=== PATIENT | female | born 1940 | race Caucasian/White ===

== ENCOUNTER 2021-08-27 16:46 | Inpatient (IN) | payer OTHER, SELFPAY ==
[~2021-08-27] VITALS: Ht 167.6 cm; Wt 75.4 kg
[2021-08-27 16:46] VITALS: BP_SYST 105
[~2021-08-27 16:46] MED LIST: ACET-73 PO; ALLO300T2 PO; APIX2.5T PO; ASCO500T20 PO; BACI1CAP14 PO; CARV6.2554 PO; CRAN450T9 PO; FURO-150 PO; LIDO1ADH77 TP; Lidocaine Patch 5% TP; MIRA50TA PO; NEU300 PO; OLME20TA13 PO; Thiamine Hcl PO
[2021-08-27] MEDS ORDERED: NACL 0.9% 1,000 ML IV ONE (17:30)
[2021-08-27 19:00] LABS: ANION GAP 12 (5-15); CALCIUM 9.7 mg/dL (8.4-11.0); CHLORIDE 104 mmol/L (98-107); CREATININE 0.87 mg/dL (0.55-1.30); GLUCOSE 90 mg/dL (70-99); POTASSIUM 3.6 mmol/L (3.5-5.1); SODIUM SERUM 140 mmol/L (136-145); UREA NITROGEN, BLOOD 19 mg/dL (8-21)
[2021-08-27 19:06] LABS: BASOPHILS % (AUTO) 0.3 % (0.0-2.0); EOSINOPHILS # (AUTO) 0.2 K/uL (0.0-0.4); EOSINOPHILS % (AUTO) 3.4 % (0.0-4.0); HEMATOCRIT 31.1 % (36-48); HEMOGLOBIN 10.2 g/dL (12.0-16.0); LYMPHOCYTES # (AUTO) 1.7 K/uL (1.0-5.5); LYMPHOCYTES % (AUTO) 32.6 % (20.5-51.5); MEAN CORPUSCULAR HEMOGLOBIN 32 pg (27-31); MEAN CORPUSCULAR HGB CONC 33 % (32-36); MEAN CORPUSCULAR VOLUME 97 fL (79.0-98.0); MONOCYTES # (AUTO) 0.5 K/uL (0.0-1.0); MONOCYTES % (AUTO) 9.6 % (1.7-9.3); NEUTROPHILS # (AUTO) 2.7 K/uL (1.8-7.7); NEUTROPHILS % (AUTO) 54.1 % (40.0-70.0); PLATELET COUNT (AUTO) 112 K/uL (130-430); RED BLOOD CELL COUNT(AUTO) 3.22 MIL/uL (4.2-6.2); RED CELL DISTRIBUTION WIDTH 18.5 % (9.0-15.0); WHITE BLOOD COUNT (AUTO) 5.1 K/uL (4.8-10.8)
[2021-08-27 19:08] LABS: ALANINE AMINOTRANSFERASE 20 U/L (12-78); ALBUMIN 3.3 g/dL (3.4-4.8); ASPARTATE AMINOTRANSFERASE 23 U/L (10-37); TOTAL BILIRUBIN 0.5 mg/dL (0.0-1.0)
[2021-08-27 19:15] LABS: PROTHROMBIN TIME 10.2 SECS (9.5-12.5)
[2021-08-27] MEDS ORDERED: cefTRIAXone 1 GM in LIDOCAINE 1%, 20 ML MDV 2.1 ML IM ONE (20:30)
[2021-08-27 20:36] LABS: BILIRUBIN,URINE NEGATIVE (NEGATIVE); BLOOD, URINE 2+ (NEGATIVE); CLARITY/URINE CLEAR (CLEAR); COLOR,URINE YELLOW (YELLOW); GLUCOSE,URINE NEGATIVE (NEGATIVE); KETONES,URINE NEGATIVE (NEGATIVE); LEUKOCYTE ESTERASE ,URINE 1+ (NEGATIVE); NITRITE, URINE NEGATIVE (NEGATIVE); PROTEIN URINE NEGATIVE (NEGATIVE); UROBILINOGEN,URINE 0.2 (0.2-1.0)
[2021-08-27 20:44] LABS: BACTERIA,URINE FEW /HPF (None Seen)
[2021-08-27 20:54] LABS: BARBITURATE, URINE NEGATIVE (NEG <=200); BENZODIAZEPINE, URINE NEGATIVE (NEG <=150); CANNABINOID, URINE NEGATIVE (NEG <=50); COCAINE, URINE NEGATIVE (NEG <=150); METHAMPHETAMINES SCREEN,URINE NEGATIVE (NEG <=500); OPIATE, URINE NEGATIVE (NEG <=100); PHENCYCLIDINE SCREEN,URINE NEGATIVE (NEG <=25); UR TRICYCLIC ANTIDEPRESSANTS NEGATIVE (NEG <=300); URINE AMPHETAMINE NEGATIVE (NEG <=500); URINE METHADONE NEGATIVE (NEG <=200); URINE OXYCODONE SCREEN NEGATIVE (NEG <=100); URINE PROPOXYPHENE SCREEN NEGATIVE (NEG <=300)
[2021-08-27] MEDS ORDERED: AZITHROMYCIN 500 MG in NS 250 ML IV ONE (21:30)
[2021-08-27] MEDS ORDERED: FUROSEMIDE 40 MG/4 ML VIAL IVP ONE (21:30)
[2021-08-27] MEDS ORDERED: POTASSIUM CHLORIDE 20 MEQ TAB.PRT.SR PO ONE (23:30)
[2021-08-27] MEDS ORDERED: cefTRIAXone 1 GM VIAL ONE (23:43)
[2021-08-27] MEDS ORDERED: AZITHROMYCIN 500 MG/VIAL (ZITHROMAX) IV ONE (23:43)
[2021-08-27] MEDS ORDERED: FUROSEMIDE 40 MG/4 ML VIAL ONE (23:44)
[2021-08-27] MEDS ORDERED: POTASSIUM CHLORIDE 20 MEQ TAB.PRT.SR ONE (23:44)
[2021-08-28] MEDS: AZITHROMYCIN 500 MG in NS 250 ML IV SCH ×2 (00:15→23:02)
[2021-08-28] MEDS: cefTRIAXone 1 GM in D5W 50 ML IV SCH ×2 (00:15→23:03)
[2021-08-28 02:14] VITALS: BP_SYST 154
[2021-08-28 04:00] VITALS: BP_SYST 145
[2021-08-28 07:06] LABS: BASOPHILS % (AUTO) 0.2 % (0.0-2.0); EOSINOPHILS # (AUTO) 0.3 K/uL (0.0-0.4); EOSINOPHILS % (AUTO) 5.8 % (0.0-4.0); HEMATOCRIT 33.3 % (36-48); HEMOGLOBIN 10.8 g/dL (12.0-16.0); LYMPHOCYTES # (AUTO) 1.1 K/uL (1.0-5.5); LYMPHOCYTES % (AUTO) 23.1 % (20.5-51.5); MEAN CORPUSCULAR HEMOGLOBIN 31 pg (27-31); MEAN CORPUSCULAR HGB CONC 33 % (32-36); MEAN CORPUSCULAR VOLUME 96 fL (79.0-98.0); MONOCYTES # (AUTO) 0.4 K/uL (0.0-1.0); MONOCYTES % (AUTO) 8.3 % (1.7-9.3); NEUTROPHILS # (AUTO) 3.1 K/uL (1.8-7.7); NEUTROPHILS % (AUTO) 62.6 % (40.0-70.0); PLATELET COUNT (AUTO) 114 K/uL (130-430); RED BLOOD CELL COUNT(AUTO) 3.46 MIL/uL (4.2-6.2); RED CELL DISTRIBUTION WIDTH 18.1 % (9.0-15.0)
[2021-08-28 07:20] LABS: ANION GAP 12 (5-15); CHLORIDE 106 mmol/L (98-107); CREATININE 0.86 mg/dL (0.55-1.30); GLUCOSE 80 mg/dL (70-99); POTASSIUM 3.6 mmol/L (3.5-5.1); SODIUM SERUM 144 mmol/L (136-145); UREA NITROGEN, BLOOD 18 mg/dL (8-21)
[2021-08-28 08:00] VITALS: BP_SYST 156
[2021-08-28] MEDS ORDERED: [UNRECOGNIZED DRUG - OTHER] PO SCH (09:00)
[2021-08-28] MEDS ORDERED: NON-FORMULARY MEDICATION (Mirabegron (Myrbetriq) 50 MG) PO SCH (09:00)
[2021-08-28] MEDS: ALLOPURINOL 300 MG TABLET (ZYLOPRIM) PO SCH (09:00)
[2021-08-28] MEDS ORDERED: NON-FORMULARY MEDICATION (Cranberry Fruit (Cranberry) 1 TAB) PO SCH (09:00)
[2021-08-28] MEDS ORDERED: THIAMINE HCL 100 MG PO SCH (09:00)
[2021-08-28] MEDS ORDERED: BACILLUS COAGULANS PO SCH (09:00)
[2021-08-28] MEDS ORDERED: INULIN PO SCH (09:00)
[2021-08-28] MEDS: THIAMINE HCL 100 MG TABLET PO SCH (10:25)
[2021-08-28] MEDS: LACTOBACILLUS RHAMNOSUS GG 1 CAP CAPSULE PO SCH (10:25)
[2021-08-28] MEDS: ASCORBIC ACID 500 MG TABLET PO SCH (10:25)
[2021-08-28] MEDS: POTASSIUM CHLORIDE 20 MEQ TAB.PRT.SR PO SCH (10:25)
[2021-08-28] MEDS: CARVEDILOL 6.25 MG TABLET (COREG) PO SCH ×2 (10:26→22:13)
[2021-08-28] MEDS: LOSARTAN POTASSIUM 25 MG TABLET PO SCH (10:26)
[2021-08-28] MEDS: FUROSEMIDE 20 MG/2 ML VIAL IVP SCH ×2 (10:28→18:05)
[2021-08-28] MEDS: APIXABAN 2.5 MG TABLET PO SCH ×2 (10:28→22:17)
[2021-08-28 11:27] VITALS: BP_SYST 164
[2021-08-28 20:00] VITALS: BP_SYST 141
[2021-08-28] MEDS ORDERED: NON-FORMULARY MEDICATION (Lidocaine 1 PATCH) TP SCH (21:00)
[2021-08-28] MEDS ORDERED: LIDOCAINE 5% TP SCH (21:00)
[2021-08-28] MEDS: LIDOCAINE PATCH 5% 1 EA TP SCH (22:17)
[2021-08-28] MEDS: ACETAMINOPHEN 500 MG TABLET PO PRN (23:41)
[2021-08-29 02:18] VITALS: BP_SYST 140
[2021-08-29 05:45] VITALS: BP_SYST 142
[2021-08-29 08:08] VITALS: BP_SYST 144
[2021-08-29] MEDS: ACETAMINOPHEN 500 MG TABLET PO PRN ×2 (10:37→17:32)
[2021-08-29] MEDS: LACTOBACILLUS RHAMNOSUS GG 1 CAP CAPSULE PO SCH (10:37)
[2021-08-29] MEDS: ASCORBIC ACID 500 MG TABLET PO SCH (10:38)
[2021-08-29] MEDS: LOSARTAN POTASSIUM 25 MG TABLET PO SCH (10:38)
[2021-08-29] MEDS: THIAMINE HCL 100 MG TABLET PO SCH (10:38)
[2021-08-29] MEDS: POTASSIUM CHLORIDE 20 MEQ TAB.PRT.SR PO SCH (10:39)
[2021-08-29] MEDS: CARVEDILOL 6.25 MG TABLET (COREG) PO SCH ×2 (10:39→21:00)
[2021-08-29] MEDS: APIXABAN 2.5 MG TABLET PO SCH ×2 (10:40→21:13)
[2021-08-29] MEDS: FUROSEMIDE 20 MG/2 ML VIAL IVP SCH ×2 (10:41→17:34)
[2021-08-29] MEDS: ALLOPURINOL 300 MG TABLET (ZYLOPRIM) PO SCH (10:42)
[2021-08-29 16:22] VITALS: BP_SYST 129
[2021-08-29 20:47] VITALS: BP_SYST 128
[2021-08-29] MEDS: LIDOCAINE PATCH 5% 1 EA TP SCH (21:00)
[2021-08-30] MEDS: cefTRIAXone 1 GM in D5W 50 ML IV SCH ×2 (00:53→22:23)
[2021-08-30] MEDS: AZITHROMYCIN 500 MG in NS 250 ML IV SCH (00:53)
[2021-08-30 01:09] VITALS: BP_SYST 114
[2021-08-30 04:54] VITALS: BP_SYST 112
[2021-08-30 08:00] VITALS: BP_SYST 143
[2021-08-30 08:10] LABS: ANION GAP 9 (5-15); CHLORIDE 106 mmol/L (98-107); CREATININE 1.19 mg/dL (0.55-1.30); GLUCOSE 81 mg/dL (70-99); POTASSIUM 3.8 mmol/L (3.5-5.1); SODIUM SERUM 142 mmol/L (136-145); UREA NITROGEN, BLOOD 29 mg/dL (8-21)
[2021-08-30 08:30] LABS: HEMOGLOBIN 10.6 g/dL (12.0-16.0); MEAN CORPUSCULAR HEMOGLOBIN 31 pg (27-31); MEAN CORPUSCULAR HGB CONC 32 % (32-36); MEAN CORPUSCULAR VOLUME 96 fL (79.0-98.0); RED BLOOD CELL COUNT(AUTO) 3.42 MIL/uL (4.2-6.2); WHITE BLOOD COUNT (AUTO) 5.7 K/uL (4.8-10.8)
[2021-08-30 08:31] LABS: BASOPHILS % (AUTO) 0.5 % (0.0-2.0); EOSINOPHILS # (AUTO) 0.5 K/uL (0.0-0.4); EOSINOPHILS % (AUTO) 8.1 % (0.0-4.0); LYMPHOCYTES # (AUTO) 2.3 K/uL (1.0-5.5); LYMPHOCYTES % (AUTO) 41.2 % (20.5-51.5); MONOCYTES # (AUTO) 0.5 K/uL (0.0-1.0); MONOCYTES % (AUTO) 9.5 % (1.7-9.3); NEUTROPHILS # (AUTO) 2.3 K/uL (1.8-7.7); NEUTROPHILS % (AUTO) 40.7 % (40.0-70.0); PLATELET COUNT (AUTO) 124 K/uL (130-430); RED CELL DISTRIBUTION WIDTH 18.5 % (9.0-15.0)
[2021-08-30] MEDS: ASCORBIC ACID 500 MG TABLET PO SCH (09:54)
[2021-08-30] MEDS: THIAMINE HCL 100 MG TABLET PO SCH (09:54)
[2021-08-30] MEDS: LACTOBACILLUS RHAMNOSUS GG 1 CAP CAPSULE PO SCH (09:54)
[2021-08-30] MEDS: POTASSIUM CHLORIDE 20 MEQ TAB.PRT.SR PO SCH (09:54)
[2021-08-30] MEDS: ALLOPURINOL 300 MG TABLET (ZYLOPRIM) PO SCH (09:54)
[2021-08-30] MEDS: LOSARTAN POTASSIUM 25 MG TABLET PO SCH (09:55)
[2021-08-30] MEDS: CARVEDILOL 3.125 MG TABLET (COREG) PO SCH ×2 (09:55→21:40)
[2021-08-30] MEDS: APIXABAN 2.5 MG TABLET PO SCH ×2 (09:59→21:41)
[2021-08-30] MEDS: ACETAMINOPHEN 500 MG TABLET PO PRN ×2 (11:45→21:49)
[2021-08-30 12:00] VITALS: BP_SYST 122
[2021-08-30 16:00] VITALS: BP_SYST 129
[2021-08-30 20:00] VITALS: BP_SYST 143
[2021-08-30] MEDS: LIDOCAINE PATCH 5% 1 EA TP SCH (21:37)
[2021-08-30] MEDS: MUPIROCIN 2% TOPICAL OINTMENT 22 GM NS SCH (21:49)
[2021-08-31] MEDS: AZITHROMYCIN 500 MG in NS 250 ML IV SCH (00:15)
[2021-08-31 01:36] VITALS: BP_SYST 144
[2021-08-31 07:31] LABS: ANION GAP 8 (5-15); CALCIUM 9.2 mg/dL (8.4-11.0); CHLORIDE 108 mmol/L (98-107); GLUCOSE 91 mg/dL (70-99); POTASSIUM 3.9 mmol/L (3.5-5.1); SODIUM SERUM 144 mmol/L (136-145); UREA NITROGEN, BLOOD 29 mg/dL (8-21)
[2021-08-31 07:38] LABS: BASOPHILS # (AUTO) 0.1 K/uL (0.0-0.2); BASOPHILS % (AUTO) 1.2 % (0.0-2.0); EOSINOPHILS # (AUTO) 0.4 K/uL (0.0-0.4); EOSINOPHILS % (AUTO) 7.8 % (0.0-4.0); HEMATOCRIT 30.3 % (36-48); HEMOGLOBIN 9.8 g/dL (12.0-16.0); LYMPHOCYTES # (AUTO) 2.4 K/uL (1.0-5.5); LYMPHOCYTES % (AUTO) 41.9 % (20.5-51.5); MEAN CORPUSCULAR HEMOGLOBIN 31 pg (27-31); MEAN CORPUSCULAR HGB CONC 32 % (32-36); MEAN CORPUSCULAR VOLUME 97 fL (79.0-98.0); MONOCYTES # (AUTO) 0.5 K/uL (0.0-1.0); MONOCYTES % (AUTO) 9.3 % (1.7-9.3); NEUTROPHILS # (AUTO) 2.3 K/uL (1.8-7.7); NEUTROPHILS % (AUTO) 39.8 % (40.0-70.0); PLATELET COUNT (AUTO) 130 K/uL (130-430); RED BLOOD CELL COUNT(AUTO) 3.14 MIL/uL (4.2-6.2); RED CELL DISTRIBUTION WIDTH 17.9 % (9.0-15.0); WHITE BLOOD COUNT (AUTO) 5.7 K/uL (4.8-10.8)
[2021-08-31 08:00] VITALS: BP_SYST 136
[2021-08-31] MEDS: THIAMINE HCL 100 MG TABLET PO SCH (09:03)
[2021-08-31] MEDS: ASCORBIC ACID 500 MG TABLET PO SCH (09:03)
[2021-08-31] MEDS: LOSARTAN POTASSIUM 25 MG TABLET PO SCH (09:03)
[2021-08-31] MEDS: ALLOPURINOL 300 MG TABLET (ZYLOPRIM) PO SCH (09:04)
[2021-08-31] MEDS: LACTOBACILLUS RHAMNOSUS GG 1 CAP CAPSULE PO SCH (09:04)
[2021-08-31] MEDS: POTASSIUM CHLORIDE 20 MEQ TAB.PRT.SR PO SCH (09:05)
[2021-08-31] MEDS: APIXABAN 2.5 MG TABLET PO SCH ×2 (09:05→22:51)
[2021-08-31] MEDS: CARVEDILOL 3.125 MG TABLET (COREG) PO SCH ×2 (09:16→22:53)
[2021-08-31] MEDS: MUPIROCIN 2% TOPICAL OINTMENT 22 GM NS SCH ×2 (09:17→22:49)
[2021-08-31 13:16] VITALS: BP_SYST 156
[2021-08-31 18:13] VITALS: BP_SYST 151
[2021-08-31 20:00] VITALS: BP_SYST 145
[2021-08-31] MEDS: LIDOCAINE PATCH 5% 1 EA TP SCH (22:54)
[2021-08-31] MEDS: cefTRIAXone 1 GM in D5W 50 ML IV SCH (22:55)
[2021-09-01] MEDS: AZITHROMYCIN 500 MG in NS 250 ML IV SCH (00:12)
[2021-09-01 00:17] VITALS: BP_SYST 150
[2021-09-01 08:38] VITALS: BP_SYST 157
[2021-09-01] MEDS: ASCORBIC ACID 500 MG TABLET PO SCH (09:12)
[2021-09-01] MEDS: CARVEDILOL 3.125 MG TABLET (COREG) PO SCH (09:12)
[2021-09-01] MEDS: ALLOPURINOL 300 MG TABLET (ZYLOPRIM) PO SCH (09:13)
[2021-09-01] MEDS: THIAMINE HCL 100 MG TABLET PO SCH (09:13)
[2021-09-01] MEDS: POTASSIUM CHLORIDE 20 MEQ TAB.PRT.SR PO SCH (09:14)
[2021-09-01] MEDS: LACTOBACILLUS RHAMNOSUS GG 1 CAP CAPSULE PO SCH (09:14)
[2021-09-01] MEDS: LOSARTAN POTASSIUM 25 MG TABLET PO SCH (09:14)
[2021-09-01] MEDS: APIXABAN 2.5 MG TABLET PO SCH (09:14)
[2021-09-01] MEDS: MUPIROCIN 2% TOPICAL OINTMENT 22 GM NS SCH (09:18)
[2021-09-01 12:00] VITALS: BP_SYST 127
[2021-09-01 16:00] VITALS: BP_SYST 173
[2021-09-01 16:57] VITALS: BP_SYST 154
[2021-09-01] MEDS ORDERED: cloNIDine HCL 0.1 MG TABLET ONE (17:58)
[2021-09-01] MEDS ORDERED: cloNIDine HCL 0.1 MG TABLET PO ONE (18:00)
== END 2021-09-01 17:30 | disposition home health service (06) | DRG 193 ==
LOC: SED 16:46 → STU 22:19 → SMU 08-30 17:18
PROVIDERS: ADMIT Internal Medicine; ATTEND Internal Medicine
DX: J18.9 Pneumonia, unspecified organism (principal); I50.43 Acute on chronic combined systolic (congestive) and diastolic (congestive) heart failure; N39.0 Urinary tract infection, site not specified; I13.0 Hypertensive heart and chronic kidney disease with heart failure and stage 1 through stage 4 chronic kidney disease, or unspecified chronic kidney disease; I48.20 Chronic atrial fibrillation, unspecified; E44.1 Mild protein-calorie malnutrition; I48.21 Permanent atrial fibrillation; Z20.822 Contact with and (suspected) exposure to COVID-19; D64.9 Anemia, unspecified; I34.0 Nonrheumatic mitral (valve) insufficiency; I73.9 Peripheral vascular disease, unspecified; W06.XXXA Fall from bed, initial encounter; N18.9 Chronic kidney disease, unspecified; I71.4 Abdominal aortic aneurysm, without rupture; R53.1 Weakness; Z96.651 Presence of right artificial knee joint; Z96.641 Presence of right artificial hip joint; R53.81 Other malaise; G62.9 Polyneuropathy, unspecified; Y93.89 Activity, other specified; Y99.8 Other external cause status; Z79.01 Long term (current) use of anticoagulants; Z85.72 Personal history of non-Hodgkin lymphomas; Z92.21 Personal history of antineoplastic chemotherapy; Y92.098 Other place in other non-institutional residence as the place of occurrence of the external cause; Z88.8 Allergy status to other drugs, medicaments and biological substances; Z79.899 Other long term (current) drug therapy; Z90.710 Acquired absence of both cervix and uterus; Z90.5 Acquired absence of kidney; Z68.26 Body mass index [BMI] 26.0-26.9, adult
CPT/HCPCS: 36415; 70450-TC; 70551; 71045; 72131; 76376; 80048; 80053; 80307; 81000; 83605; 83880; 84484; 85025; 85610-TC; 85730-TC; 87040; 87081; 87086; 93005; 93880; 96365; 96367; 96375; 97110-GP; 97112-GP; 97116-GP; 97530-GP; 99285; G0378; J0456; J0696; J1940; J7050; J7060

== ENCOUNTER 2022-07-31 10:50 | Inpatient (IN) | payer OTHER ==
[~2022-07-31] VITALS: Ht 170.2 cm; Wt 71.2 kg
[~2022-07-31 10:50] MED LIST changes: -OLME20TA13 PO; +OLME20TA74 PO
[2022-07-31 10:53] VITALS: BP_SYST 116
[2022-07-31] MEDS ORDERED: BACITRACIN 1 GM OINT TP ONE (11:24)
[2022-07-31 12:09] LABS: BILIRUBIN,URINE NEGATIVE (NEGATIVE); BLOOD, URINE 3+ (NEGATIVE); CLARITY/URINE CLOUDY (CLEAR); COLOR,URINE YELLOW (YELLOW); GLUCOSE,URINE NEGATIVE (NEGATIVE); KETONES,URINE NEGATIVE (NEGATIVE); PH,URINE 8.5 (5.0-8.0); PROTEIN URINE 1+ (NEGATIVE)
[2022-07-31 12:10] LABS: LEUKOCYTE ESTERASE ,URINE 2+ (NEGATIVE); NITRITE, URINE NEGATIVE (NEGATIVE); UROBILINOGEN,URINE 0.2 (0.2-1.0); WBC,URINE >100 /HPF (0-3)
[2022-07-31 12:11] LABS: BACTERIA,URINE MODERATE /HPF (None Seen); MUCUS,URINE 1+ /LPF (None Seen)
[2022-07-31] MEDS ORDERED: cefTRIAXone 1 GM VIAL IM ONE (12:30)
[2022-07-31] MEDS ORDERED: CEPH-548 PO (12:30)
[2022-07-31] MEDS ORDERED: IBUPROFEN 600 MG TABLET PO ONE (13:15)
[2022-07-31] MEDS ORDERED: ACETAMINOPHEN 500 MG TABLET PO ONE (13:30)
[2022-07-31] MEDS ORDERED: NS 500 ML IV ONE (16:15)
[2022-07-31 17:20] LABS: BASOPHILS % (AUTO) 0.2 % (0.0-2.0); EOSINOPHILS % (AUTO) 0.3 % (0.0-4.0); HEMATOCRIT 27.1 % (36-48); HEMOGLOBIN 9.1 g/dL (12.0-16.0); LYMPHOCYTES % (AUTO) 12.2 % (20.5-51.5); MEAN CORPUSCULAR HEMOGLOBIN 30 pg (27-31); MEAN CORPUSCULAR HGB CONC 34 % (32-36); MEAN CORPUSCULAR VOLUME 90 fL (79.0-98.0); MONOCYTES # (AUTO) 0.5 K/uL (0.0-1.0); MONOCYTES % (AUTO) 6.5 % (1.7-9.3); NEUTROPHILS # (AUTO) 6.8 K/uL (1.8-7.7); NEUTROPHILS % (AUTO) 80.8 % (40.0-70.0); PLATELET COUNT (AUTO) 86 K/uL (130-430); RED BLOOD CELL COUNT(AUTO) 3.02 MIL/uL (4.2-6.2); RED CELL DISTRIBUTION WIDTH 18.7 % (9.0-15.0); WHITE BLOOD COUNT (AUTO) 8.5 K/uL (4.8-10.8)
[2022-07-31 17:34] LABS: ANION GAP 9 (5-15); CALCIUM 8.7 mg/dL (8.4-11.0); CHLORIDE 90 mmol/L (98-107); CREATININE 2.03 mg/dL (0.55-1.30); GLUCOSE 98 mg/dL (70-99); UREA NITROGEN, BLOOD 51 mg/dL (8-21)
[2022-07-31 17:42] LABS: ALANINE AMINOTRANSFERASE 12 U/L (12-78); ALBUMIN 2.1 g/dL (3.4-4.8); ASPARTATE AMINOTRANSFERASE 20 U/L (10-37); TOTAL BILIRUBIN 1.1 mg/dL (0.0-1.0)
[2022-07-31] MEDS ORDERED: POTASSIUM CHLORIDE 20 MEQ TAB.PRT.SR PO ONE (18:00)
[2022-07-31 20:12] VITALS: BP_SYST 120
[2022-07-31] MEDS ORDERED: ACETAMINOPHEN 500 MG TABLET PO PRN (21:30)
[2022-07-31] MEDS ORDERED: ALBUTEROL SULFATE 0.083% 2.5 MG/3 ML VIAL.NEB INH PRN (21:30)
[2022-07-31] MEDS ORDERED: ACETAMINOPHEN 325 MG TABLET PO PRN (21:30)
[2022-07-31] MEDS ORDERED: LORazepam 2 MG/ML VIAL IVP PRN (21:30)
[2022-07-31] MEDS ORDERED: IPRATROPIUM BROM 0.5 MG/2.5 ML VIAL.NEB (ATROVENT) INH PRN (21:30)
[2022-07-31] MEDS ORDERED: ONDANSETRON HCL 4 MG/2 ML VIAL IVP PRN (21:30)
[2022-07-31 21:40] VITALS: BP_SYST 120
[2022-07-31] MEDS: D5NS 1,000 ML IV SCH (22:13)
[2022-08-01] VITALS: BP_SYST 128
[2022-08-01] MEDS: ACETAMINOPHEN 325 MG TABLET PO PRN ×2 (03:51→09:56)
[2022-08-01 06:12] LABS: BASOPHILS % (AUTO) 0.2 % (0.0-2.0); EOSINOPHILS % (AUTO) 0.3 % (0.0-4.0); HEMATOCRIT 25.4 % (36-48); HEMOGLOBIN 8.6 g/dL (12.0-16.0); LYMPHOCYTES # (AUTO) 0.8 K/uL (1.0-5.5); LYMPHOCYTES % (AUTO) 11.9 % (20.5-51.5); MEAN CORPUSCULAR HEMOGLOBIN 31 pg (27-31); MEAN CORPUSCULAR HGB CONC 34 % (32-36); MEAN CORPUSCULAR VOLUME 91 fL (79.0-98.0); MONOCYTES # (AUTO) 0.5 K/uL (0.0-1.0); MONOCYTES % (AUTO) 7.7 % (1.7-9.3); NEUTROPHILS # (AUTO) 5.1 K/uL (1.8-7.7); NEUTROPHILS % (AUTO) 79.9 % (40.0-70.0); PLATELET COUNT (AUTO) 85 K/uL (130-430); RED BLOOD CELL COUNT(AUTO) 2.79 MIL/uL (4.2-6.2); RED CELL DISTRIBUTION WIDTH 18.5 % (9.0-15.0); WHITE BLOOD COUNT (AUTO) 6.4 K/uL (4.8-10.8)
[2022-08-01 06:41] LABS: ALANINE AMINOTRANSFERASE 13 U/L (12-78); ALBUMIN 1.9 g/dL (3.4-4.8); ANION GAP 8 (5-15); ASPARTATE AMINOTRANSFERASE 23 U/L (10-37); CALCIUM 8.7 mg/dL (8.4-11.0); CHLORIDE 95 mmol/L (98-107); CREATININE 1.89 mg/dL (0.55-1.30); GLUCOSE 128 mg/dL (70-99); PHOSPHORUS 3.4 mg/dL (2.7-4.5); TOTAL BILIRUBIN 0.9 mg/dL (0.0-1.0); UREA NITROGEN, BLOOD 49 mg/dL (8-21)
[2022-08-01 07:07] LABS: C-REACTIVE PROTEIN QUANT 32.5 mg/dL (0-0.5)
[2022-08-01 07:15] LABS: ERYTHROCYTE SEDIMENTATION RATE 26 MM/HR (0-20)
[2022-08-01] MEDS ORDERED: NON-FORMULARY MEDICATION (Cranberry Fruit (Cranberry) 1 TAB) PO SCH (09:00)
[2022-08-01] MEDS: cefTRIAXone 1 GM IVPB PREMIX 50 ML IV SCH (09:56)
[2022-08-01] MEDS: GABAPENTIN 300 MG CAPSULE PO SCH ×3 (09:57→21:59)
[2022-08-01] MEDS: ALLOPURINOL 300 MG TABLET (ZYLOPRIM) PO SCH (09:57)
[2022-08-01] MEDS: APIXABAN 2.5 MG TABLET PO SCH ×2 (10:00→22:02)
[2022-08-01] MEDS: D5NS 1,000 ML IV SCH ×2 (10:03→18:37)
[2022-08-01 12:51] VITALS: BP_SYST 135
[2022-08-01 17:09] VITALS: BP_SYST 138
[2022-08-01 19:15] VITALS: BP_SYST 135
[2022-08-01] MEDS: FUROSEMIDE 20 MG TABLET PO SCH (22:01)
[2022-08-01] MEDS: CARVEDILOL 12.5 MG TABLET (COREG) PO SCH (22:03)
[2022-08-01] MEDS: LIDOCAINE PATCH 5% 1 EA TP SCH (22:03)
[2022-08-02 00:33] VITALS: BP_SYST 119
[2022-08-02] MEDS: D5NS 1,000 ML IV SCH ×3 (03:43→18:26)
[2022-08-02 06:11] LABS: BASOPHILS % (AUTO) 0.3 % (0.0-2.0); EOSINOPHILS % (AUTO) 0.3 % (0.0-4.0); HEMATOCRIT 24.2 % (36-48); LYMPHOCYTES # (AUTO) 1.3 K/uL (1.0-5.5); LYMPHOCYTES % (AUTO) 21.4 % (20.5-51.5); MEAN CORPUSCULAR HEMOGLOBIN 30 pg (27-31); MEAN CORPUSCULAR HGB CONC 33 % (32-36); MEAN CORPUSCULAR VOLUME 91 fL (79.0-98.0); MONOCYTES # (AUTO) 0.6 K/uL (0.0-1.0); MONOCYTES % (AUTO) 9.5 % (1.7-9.3); NEUTROPHILS # (AUTO) 4.2 K/uL (1.8-7.7); NEUTROPHILS % (AUTO) 68.5 % (40.0-70.0); PLATELET COUNT (AUTO) 89 K/uL (130-430); RED BLOOD CELL COUNT(AUTO) 2.65 MIL/uL (4.2-6.2); RED CELL DISTRIBUTION WIDTH 18.6 % (9.0-15.0); WHITE BLOOD COUNT (AUTO) 6.1 K/uL (4.8-10.8)
[2022-08-02 07:16] LABS: ANION GAP 6 (5-15); CALCIUM 8.6 mg/dL (8.4-11.0); CHLORIDE 100 mmol/L (98-107); CREATININE 1.79 mg/dL (0.55-1.30); GLUCOSE 132 mg/dL (70-99); PHOSPHORUS 3.6 mg/dL (2.7-4.5); UREA NITROGEN, BLOOD 42 mg/dL (8-21)
[2022-08-02 07:25] LABS: ERYTHROCYTE SEDIMENTATION RATE 39 MM/HR (0-20)
[2022-08-02 08:12] VITALS: BP_SYST 134
[2022-08-02] MEDS: ACETAMINOPHEN 325 MG TABLET PO PRN ×2 (10:31→14:37)
[2022-08-02] MEDS: ALLOPURINOL 300 MG TABLET (ZYLOPRIM) PO SCH (10:31)
[2022-08-02] MEDS: GABAPENTIN 300 MG CAPSULE PO SCH ×3 (10:31→21:57)
[2022-08-02] MEDS: APIXABAN 2.5 MG TABLET PO SCH ×3 (10:33→22:42)
[2022-08-02] MEDS: cefTRIAXone 1 GM IVPB PREMIX 50 ML IV SCH (10:34)
[2022-08-02 13:27] VITALS: BP_SYST 143
[2022-08-02] MEDS ORDERED: IBUPROFEN 600 MG TABLET PO PRN (14:30)
[2022-08-02 17:03] VITALS: BP_SYST 112
[2022-08-02 19:17] VITALS: BP_SYST 118
[2022-08-02] MEDS: CARVEDILOL 12.5 MG TABLET (COREG) PO SCH (21:57)
[2022-08-02] MEDS: FUROSEMIDE 20 MG TABLET PO SCH (22:02)
[2022-08-02] MEDS: LIDOCAINE PATCH 5% 1 EA TP SCH (22:02)
[2022-08-03] MEDS: ACETAMINOPHEN 325 MG TABLET PO PRN ×3 (01:27→13:49)
[2022-08-03 02:01] VITALS: BP_SYST 134
[2022-08-03 06:28] LABS: BASOPHILS % (AUTO) 0.4 % (0.0-2.0); EOSINOPHILS % (AUTO) 0.5 % (0.0-4.0); HEMATOCRIT 24.9 % (36-48); HEMOGLOBIN 8.2 g/dL (12.0-16.0); LYMPHOCYTES # (AUTO) 1.4 K/uL (1.0-5.5); LYMPHOCYTES % (AUTO) 28.7 % (20.5-51.5); MEAN CORPUSCULAR HEMOGLOBIN 30 pg (27-31); MEAN CORPUSCULAR HGB CONC 33 % (32-36); MEAN CORPUSCULAR VOLUME 91 fL (79.0-98.0); MONOCYTES # (AUTO) 0.5 K/uL (0.0-1.0); NEUTROPHILS # (AUTO) 2.9 K/uL (1.8-7.7); NEUTROPHILS % (AUTO) 59.4 % (40.0-70.0); PLATELET COUNT (AUTO) 97 K/uL (130-430); RED BLOOD CELL COUNT(AUTO) 2.73 MIL/uL (4.2-6.2); RED CELL DISTRIBUTION WIDTH 18.7 % (9.0-15.0); WHITE BLOOD COUNT (AUTO) 4.9 K/uL (4.8-10.8)
[2022-08-03 07:14] LABS: ERYTHROCYTE SEDIMENTATION RATE 51 MM/HR (0-20)
[2022-08-03 07:19] LABS: ALANINE AMINOTRANSFERASE 14 U/L (12-78); ALBUMIN 1.9 g/dL (3.4-4.8); ANION GAP 8 (5-15); ASPARTATE AMINOTRANSFERASE 17 U/L (10-37); C-REACTIVE PROTEIN QUANT 20.4 mg/dL (0-0.5); CALCIUM 9.1 mg/dL (8.4-11.0); CHLORIDE 104 mmol/L (98-107); CREATININE 1.68 mg/dL (0.55-1.30); GLUCOSE 129 mg/dL (70-99); PHOSPHORUS 4.2 mg/dL (2.7-4.5); TOTAL BILIRUBIN 0.6 mg/dL (0.0-1.0); UREA NITROGEN, BLOOD 40 mg/dL (8-21)
[2022-08-03 08:30] VITALS: BP_SYST 109
[2022-08-03] MEDS: APIXABAN 2.5 MG TABLET PO SCH (08:37)
[2022-08-03] MEDS: ALLOPURINOL 300 MG TABLET (ZYLOPRIM) PO SCH (08:37)
[2022-08-03] MEDS: GABAPENTIN 300 MG CAPSULE PO SCH ×3 (08:38→21:39)
[2022-08-03] MEDS: D5NS 1,000 ML IV SCH (08:38)
[2022-08-03] MEDS: cefTRIAXone 1 GM IVPB PREMIX 50 ML IV SCH (08:40)
[2022-08-03 11:56] VITALS: BP_SYST 127
[2022-08-03 17:14] VITALS: BP_SYST 136
[2022-08-03 20:00] VITALS: BP_SYST 134
[2022-08-03] MEDS: FUROSEMIDE 20 MG TABLET PO SCH (21:39)
[2022-08-03] MEDS: CARVEDILOL 12.5 MG TABLET (COREG) PO SCH (21:39)
[2022-08-03] MEDS: LIDOCAINE PATCH 5% 1 EA TP SCH (21:40)
[2022-08-04] VITALS: BP_SYST 128
[2022-08-04] MEDS: ACETAMINOPHEN 325 MG TABLET PO PRN ×3 (05:54→17:52)
[2022-08-04 08:00] VITALS: BP_SYST 136
[2022-08-04] MEDS: ALLOPURINOL 300 MG TABLET (ZYLOPRIM) PO SCH (09:13)
[2022-08-04] MEDS: cefTRIAXone 1 GM IVPB PREMIX 50 ML IV SCH (09:13)
[2022-08-04] MEDS: GABAPENTIN 300 MG CAPSULE PO SCH ×3 (09:13→22:01)
[2022-08-04 10:26] LABS: BASOPHILS % (AUTO) 0.5 % (0.0-2.0); EOSINOPHILS % (AUTO) 0.5 % (0.0-4.0); HEMATOCRIT 26.9 % (36-48); HEMOGLOBIN 8.5 g/dL (12.0-16.0); LYMPHOCYTES # (AUTO) 1.2 K/uL (1.0-5.5); LYMPHOCYTES % (AUTO) 23.6 % (20.5-51.5); MEAN CORPUSCULAR HEMOGLOBIN 30 pg (27-31); MEAN CORPUSCULAR HGB CONC 32 % (32-36); MEAN CORPUSCULAR VOLUME 95 fL (79.0-98.0); MONOCYTES # (AUTO) 0.4 K/uL (0.0-1.0); MONOCYTES % (AUTO) 7.6 % (1.7-9.3); NEUTROPHILS # (AUTO) 3.4 K/uL (1.8-7.7); NEUTROPHILS % (AUTO) 67.8 % (40.0-70.0); PLATELET COUNT (AUTO) 93 K/uL (130-430); RED BLOOD CELL COUNT(AUTO) 2.82 MIL/uL (4.2-6.2); RED CELL DISTRIBUTION WIDTH 19.5 % (9.0-15.0)
[2022-08-04 10:31] LABS: ANION GAP 7 (5-15); C-REACTIVE PROTEIN QUANT 13.7 mg/dL (0-0.5); CALCIUM 9.4 mg/dL (8.4-11.0); CHLORIDE 104 mmol/L (98-107); CREATININE 1.46 mg/dL (0.55-1.30); GLUCOSE 123 mg/dL (70-99); PHOSPHORUS 4.3 mg/dL (2.7-4.5); UREA NITROGEN, BLOOD 41 mg/dL (8-21)
[2022-08-04 11:43] LABS: ERYTHROCYTE SEDIMENTATION RATE 45 MM/HR (0-20)
[2022-08-04 11:55] VITALS: BP_SYST 122
[2022-08-04 18:36] VITALS: BP_SYST 112
[2022-08-04 20:00] VITALS: BP_SYST 106
[2022-08-04 20:56] VITALS: BP_SYST 106
[2022-08-04] MEDS: CARVEDILOL 12.5 MG TABLET (COREG) PO SCH (21:00)
[2022-08-04] MEDS: FUROSEMIDE 20 MG TABLET PO SCH (21:00)
[2022-08-04] MEDS: LIDOCAINE PATCH 5% 1 EA TP SCH (22:01)
[2022-08-05 01:34] VITALS: BP_SYST 133
[2022-08-05 08:15] LABS: BASOPHILS % (AUTO) 0.5 % (0.0-2.0); EOSINOPHILS # (AUTO) 0.1 K/uL (0.0-0.4); EOSINOPHILS % (AUTO) 1.2 % (0.0-4.0); HEMOGLOBIN 9.3 g/dL (12.0-16.0); LYMPHOCYTES # (AUTO) 1.6 K/uL (1.0-5.5); LYMPHOCYTES % (AUTO) 29.6 % (20.5-51.5); MEAN CORPUSCULAR HEMOGLOBIN 30 pg (27-31); MEAN CORPUSCULAR HGB CONC 31 % (32-36); MEAN CORPUSCULAR VOLUME 96 fL (79.0-98.0); MONOCYTES # (AUTO) 0.5 K/uL (0.0-1.0); MONOCYTES % (AUTO) 8.8 % (1.7-9.3); NEUTROPHILS # (AUTO) 3.2 K/uL (1.8-7.7); NEUTROPHILS % (AUTO) 59.9 % (40.0-70.0); PLATELET COUNT (AUTO) 107 K/uL (130-430); RED BLOOD CELL COUNT(AUTO) 3.13 MIL/uL (4.2-6.2); RED CELL DISTRIBUTION WIDTH 19.4 % (9.0-15.0); WHITE BLOOD COUNT (AUTO) 5.3 K/uL (4.8-10.8)
[2022-08-05 08:44] VITALS: BP_SYST 157
[2022-08-05] MEDS: GABAPENTIN 300 MG CAPSULE PO SCH ×3 (09:00→21:37)
[2022-08-05 09:24] LABS: ERYTHROCYTE SEDIMENTATION RATE 40 MM/HR (0-20)
[2022-08-05] MEDS ORDERED: DIATR MEGLU/DIATRIZ SOD 30 ML SOLUTION PO ONE (09:41)
[2022-08-05] MEDS: cefTRIAXone 1 GM IVPB PREMIX 50 ML IV SCH (11:06)
[2022-08-05 11:42] LABS: ANION GAP 9 (5-15); C-REACTIVE PROTEIN QUANT 12.6 mg/dL (0-0.5); CALCIUM 9.8 mg/dL (8.4-11.0); CHLORIDE 104 mmol/L (98-107); CREATININE 1.56 mg/dL (0.55-1.30); GLUCOSE 104 mg/dL (70-99); PHOSPHORUS 3.9 mg/dL (2.7-4.5); UREA NITROGEN, BLOOD 43 mg/dL (8-21)
[2022-08-05 11:51] VITALS: BP_SYST 138
[2022-08-05] MEDS: ALLOPURINOL 300 MG TABLET (ZYLOPRIM) PO SCH (14:46)
[2022-08-05 17:34] VITALS: BP_SYST 130
[2022-08-05 19:00] VITALS: BP_SYST 137
[2022-08-05 20:00] VITALS: BP_SYST 137
[2022-08-05] MEDS: CARVEDILOL 12.5 MG TABLET (COREG) PO SCH (21:36)
[2022-08-05] MEDS: FUROSEMIDE 20 MG TABLET PO SCH (21:37)
[2022-08-05] MEDS: LIDOCAINE PATCH 5% 1 EA TP SCH (21:37)
[2022-08-05] MEDS: ACETAMINOPHEN 325 MG TABLET PO PRN (21:52)
[2022-08-06 01:43] VITALS: BP_SYST 131
[2022-08-06 07:07] LABS: ALANINE AMINOTRANSFERASE 14 U/L (12-78); ALBUMIN 2.1 g/dL (3.4-4.8); ANION GAP 6 (5-15); ASPARTATE AMINOTRANSFERASE 13 U/L (10-37); C-REACTIVE PROTEIN QUANT 9.8 mg/dL (0-0.5); CALCIUM 9.5 mg/dL (8.4-11.0); CHLORIDE 103 mmol/L (98-107); GLUCOSE 94 mg/dL (70-99); PHOSPHORUS 3.5 mg/dL (2.7-4.5); TOTAL BILIRUBIN 0.6 mg/dL (0.0-1.0); UREA NITROGEN, BLOOD 42 mg/dL (8-21)
[2022-08-06 07:50] LABS: BASOPHILS % (AUTO) 0.2 % (0.0-2.0); HEMOGLOBIN 8.4 g/dL (12.0-16.0); LYMPHOCYTES # (AUTO) 1.7 K/uL (1.0-5.5); LYMPHOCYTES % (AUTO) 36.9 % (20.5-51.5); MEAN CORPUSCULAR HEMOGLOBIN 30 pg (27-31); MEAN CORPUSCULAR HGB CONC 32 % (32-36); MEAN CORPUSCULAR VOLUME 92 fL (79.0-98.0); MONOCYTES # (AUTO) 0.4 K/uL (0.0-1.0); MONOCYTES % (AUTO) 8.5 % (1.7-9.3); NEUTROPHILS # (AUTO) 2.4 K/uL (1.8-7.7); NEUTROPHILS % (AUTO) 53.4 % (40.0-70.0); PLATELET COUNT (AUTO) 104 K/uL (130-430); RED BLOOD CELL COUNT(AUTO) 2.83 MIL/uL (4.2-6.2); RED CELL DISTRIBUTION WIDTH 19.1 % (9.0-15.0); WHITE BLOOD COUNT (AUTO) 4.6 K/uL (4.8-10.8)
[2022-08-06 07:54] LABS: ERYTHROCYTE SEDIMENTATION RATE 43 MM/HR (0-20)
[2022-08-06 08:59] VITALS: BP_SYST 168
[2022-08-06] MEDS: ALLOPURINOL 300 MG TABLET (ZYLOPRIM) PO SCH (09:02)
[2022-08-06] MEDS: GABAPENTIN 300 MG CAPSULE PO SCH (09:02)
[2022-08-06] MEDS: cefTRIAXone 1 GM IVPB PREMIX 50 ML IV SCH (09:04)
[2022-08-06] MEDS: ACETAMINOPHEN 325 MG TABLET PO PRN (09:07)
[2022-08-06 09:32] VITALS: BP_SYST 168
[2022-08-06 11:50] VITALS: BP_SYST 150
[2022-08-06 14:47] VITALS: BP_SYST 150
[2022-08-07] MEDS ORDERED: AMOX500C2 PO (09:57)
== END 2022-08-06 15:35 | DRG 871 ==
LOC: SED 10:50 → SMU 18:06
PROVIDERS: ADMIT Preventive Medicine Preventive Medicine/Occupational Environmental Medicine; ATTEND Preventive Medicine Preventive Medicine/Occupational Environmental Medicine
PROC: 0T2BX0Z Change Drainage Device in Bladder, External Approach (ICD-10-PCS; principal; 2022-07-31)
DX: A41.9 Sepsis, unspecified organism (principal); E43 Unspecified severe protein-calorie malnutrition; J96.00 Acute respiratory failure, unspecified whether with hypoxia or hypercapnia; N39.0 Urinary tract infection, site not specified; E87.1 Hypo-osmolality and hyponatremia; N17.9 Acute kidney failure, unspecified; T83.028A Displacement of other urinary catheter, initial encounter; I25.10 Atherosclerotic heart disease of native coronary artery without angina pectoris; I48.91 Unspecified atrial fibrillation; M10.9 Gout, unspecified; N32.81 Overactive bladder; E88.09 Other disorders of plasma-protein metabolism, not elsewhere classified; E78.5 Hyperlipidemia, unspecified; E87.6 Hypokalemia; D69.6 Thrombocytopenia, unspecified; D64.9 Anemia, unspecified; Z20.822 Contact with and (suspected) exposure to COVID-19; Y83.8 Other surgical procedures as the cause of abnormal reaction of the patient, or of later complication, without mention of misadventure at the time of the procedure; N28.89 Other specified disorders of kidney and ureter; R53.81 Other malaise; B96.4 Proteus (mirabilis) (morganii) as the cause of diseases classified elsewhere; I11.0 Hypertensive heart disease with heart failure; I50.9 Heart failure, unspecified; Z88.5 Allergy status to narcotic agent; Z88.8 Allergy status to other drugs, medicaments and biological substances; Z79.899 Other long term (current) drug therapy; Z87.440 Personal history of urinary (tract) infections; Z85.72 Personal history of non-Hodgkin lymphomas; Y92.89 Other specified places as the place of occurrence of the external cause; Z68.24 Body mass index [BMI] 24.0-24.9, adult
CPT/HCPCS: 36415; 71045; 76376; 76770; 80048; 80053; 81000; 83735; 84100; 84484; 85025; 85651-TC; 86140; 87086; 93005; 94760; 96360; 96372; 97110-GP; 97112-GP; 97116-GP; 97530-GP; 99291; 99292; J0696; Q9964

== ENCOUNTER 2022-08-31 04:42 | Inpatient (IN) | payer OTHER ==
[~2022-08-31] VITALS: Ht 170.2 cm; Wt 75.3 kg
[~2022-08-31 04:42] MED LIST changes: +AMOX500C2 PO; -ASCO500T20 PO; -BACI1CAP14 PO; -Lidocaine Patch 5% TP; -MIRA50TA PO; -OLME20TA74 PO; -Thiamine Hcl PO
[2022-08-31 04:48] VITALS: BP_SYST 146
[2022-08-31] MEDS ORDERED: VANCOMYCIN HCL 1,000 MG in NS 250 ML IV ONE (05:00)
[2022-08-31] MEDS ORDERED: MEROPENEM 1 GM IVPB PREMIX 50 ML IV ONE (05:00)
[2022-08-31] MEDS ORDERED: NACL 0.9% 1,000 ML IV ONE (05:00)
[2022-08-31] MEDS ORDERED: POTA-197 PO (05:17)
[2022-08-31] MEDS ORDERED: MULT-1117 PO (05:17)
[2022-08-31] MEDS ORDERED: BISA10SU77 RC (05:17)
[2022-08-31] MEDS ORDERED: MAGN400T7 PO (05:17)
[2022-08-31] MEDS ORDERED: MOM PO (05:17)
[2022-08-31 05:21] LABS: BASOPHILS % (AUTO) 0.4 % (0.0-2.0); EOSINOPHILS % (AUTO) 0.7 % (0.0-4.0); HEMATOCRIT 26.1 % (36-48); HEMOGLOBIN 8.5 g/dL (12.0-16.0); LYMPHOCYTES # (AUTO) 1.8 K/uL (1.0-5.5); LYMPHOCYTES % (AUTO) 31.9 % (20.5-51.5); MEAN CORPUSCULAR HEMOGLOBIN 30 pg (27-31); MEAN CORPUSCULAR HGB CONC 33 % (32-36); MEAN CORPUSCULAR VOLUME 92 fL (79.0-98.0); MONOCYTES # (AUTO) 0.4 K/uL (0.0-1.0); MONOCYTES % (AUTO) 6.3 % (1.7-9.3); NEUTROPHILS # (AUTO) 3.4 K/uL (1.8-7.7); NEUTROPHILS % (AUTO) 60.7 % (40.0-70.0); PLATELET COUNT (AUTO) 129 K/uL (130-430); RED BLOOD CELL COUNT(AUTO) 2.84 MIL/uL (4.2-6.2); RED CELL DISTRIBUTION WIDTH 17.6 % (9.0-15.0); WHITE BLOOD COUNT (AUTO) 5.7 K/uL (4.8-10.8)
[2022-08-31] MEDS ORDERED: VANCOMYCIN HCL 1000 MG/VIAL IV ONE (05:23)
[2022-08-31 05:32] LABS: CALCIUM 9.5 mg/dL (8.4-11.0); CHLORIDE 90 mmol/L (98-107); CREATININE 1.46 mg/dL (0.55-1.30); GLUCOSE 107 mg/dL (70-99); UREA NITROGEN, BLOOD 31 mg/dL (8-21)
[2022-08-31 05:41] LABS: ALANINE AMINOTRANSFERASE 10 U/L (12-78); ALBUMIN 2.3 g/dL (3.4-4.8); ANION GAP 1 (5-15); ASPARTATE AMINOTRANSFERASE 16 U/L (10-37); TOTAL BILIRUBIN 0.5 mg/dL (0.0-1.0)
[2022-08-31] MEDS ORDERED: KCL 20 mEq in 100 mL (PREMIX) 100 ML IV ONE (05:45)
[2022-08-31] MEDS ORDERED: POTASSIUM CHLORIDE 20 MEQ TAB.PRT.SR PO ONE (06:15)
[2022-08-31 06:27] LABS: BILIRUBIN,URINE NEGATIVE (NEGATIVE); BLOOD, URINE 3+ (NEGATIVE); CLARITY/URINE SL CLOUDY (CLEAR); COLOR,URINE YELLOW (YELLOW); GLUCOSE,URINE NEGATIVE (NEGATIVE); KETONES,URINE NEGATIVE (NEGATIVE); LEUKOCYTE ESTERASE ,URINE 3+ (NEGATIVE); NITRITE, URINE NEGATIVE (NEGATIVE); PROTEIN URINE 1+ (NEGATIVE); UROBILINOGEN,URINE 0.2 (0.2-1.0)
[2022-08-31 06:36] LABS: BACTERIA,URINE MANY /HPF (None Seen); RBC,URINE 80-100 /HPF (0-3); WBC,URINE >100 /HPF (0-3)
[2022-08-31] MEDS: LevALBUTEROL HCL 1.25 MG/0.5 ML *CONC.* VIAL.NEB (XOPENEX CONC.) INH SCH ×3 (07:07→19:49)
[2022-08-31] MEDS ORDERED: CEFEPIME 1 GM/VIAL (MAXIPIME) ONE ×3 (12:51→22:04)
[2022-08-31] MEDS: CEFEPIME 1 GM in D5W 50 ML IV SCH (12:55)
[2022-08-31] MEDS ORDERED: BISACODYL 10 MG/SUPPOSITORY RC PRN (13:15)
[2022-08-31] MEDS ORDERED: MILK OF MAGNESIA 30 ML UDC PO PRN (13:15)
[2022-08-31] MEDS ORDERED: ACETAMINOPHEN 500 MG TABLET PO PRN (13:15)
[2022-08-31 15:10] VITALS: BP_SYST 147
[2022-08-31] MEDS ORDERED: FUROSEMIDE 40 MG/4 ML VIAL IVP ONE (15:45)
[2022-08-31] MEDS: GABAPENTIN 300 MG CAPSULE PO SCH ×2 (15:59→21:12)
[2022-08-31 20:00] VITALS: BP_SYST 152
[2022-08-31] MEDS ORDERED: NON-FORMULARY MEDICATION (Lidocaine 1 PATCH) TP SCH (21:00)
[2022-08-31] MEDS ORDERED: FUROSEMIDE 20 MG TABLET PO SCH (21:00)
[2022-08-31] MEDS: CARVEDILOL 6.25 MG TABLET (COREG) PO SCH (21:10)
[2022-08-31] MEDS: APIXABAN 2.5 MG TABLET PO SCH (21:11)
[2022-08-31 23:52] VITALS: BP_SYST 152
[2022-09-01 00:56] VITALS: BP_SYST 114
[2022-09-01] MEDS: LevALBUTEROL HCL 1.25 MG/0.5 ML *CONC.* VIAL.NEB (XOPENEX CONC.) INH SCH ×4 (02:04→20:35)
[2022-09-01] MEDS: VANCOMYCIN HCL 750 MG in NS 250 ML IV SCH (06:30)
[2022-09-01 07:24] LABS: ANION GAP 0 (5-15); CALCIUM 9.2 mg/dL (8.4-11.0); CHLORIDE 95 mmol/L (98-107); CREATININE 1.58 mg/dL (0.55-1.30); GLUCOSE 91 mg/dL (70-99); UREA NITROGEN, BLOOD 30 mg/dL (8-21)
[2022-09-01 07:36] LABS: BASOPHILS % (AUTO) 0.5 % (0.0-2.0); HEMATOCRIT 23.8 % (36-48); HEMOGLOBIN 7.6 g/dL (12.0-16.0); LYMPHOCYTES # (AUTO) 1.9 K/uL (1.0-5.5); LYMPHOCYTES % (AUTO) 42.2 % (20.5-51.5); MEAN CORPUSCULAR HEMOGLOBIN 30 pg (27-31); MEAN CORPUSCULAR HGB CONC 32 % (32-36); MEAN CORPUSCULAR VOLUME 93 fL (79.0-98.0); MONOCYTES # (AUTO) 0.4 K/uL (0.0-1.0); MONOCYTES % (AUTO) 9.4 % (1.7-9.3); NEUTROPHILS # (AUTO) 2.1 K/uL (1.8-7.7); NEUTROPHILS % (AUTO) 46.9 % (40.0-70.0); PLATELET COUNT (AUTO) 100 K/uL (130-430); RED BLOOD CELL COUNT(AUTO) 2.55 MIL/uL (4.2-6.2); RED CELL DISTRIBUTION WIDTH 17.9 % (9.0-15.0); WHITE BLOOD COUNT (AUTO) 4.6 K/uL (4.8-10.8)
[2022-09-01] MEDS ORDERED: NON-FORMULARY MEDICATION (Magnesium Oxide 400 MG) PO SCH (09:00)
[2022-09-01] MEDS ORDERED: NON-FORMULARY MEDICATION (Cranberry Fruit (Cranberry) 1 TAB) PO SCH (09:00)
[2022-09-01] MEDS ORDERED: POTASSIUM CHLORIDE 20 MEQ/PKT PACKET PO ONE (15:30)
[2022-09-01] MEDS: CEFEPIME 1 GM in D5W 50 ML IV SCH ×4 (16:50→22:07)
[2022-09-01] MEDS: FUROSEMIDE 40 MG/4 ML VIAL IVP SCH (16:53)
[2022-09-01] MEDS: APIXABAN 2.5 MG TABLET PO SCH ×2 (16:54→22:16)
[2022-09-01] MEDS: MULTIVITAMINS TAB 1 TABLET PO SCH (16:55)
[2022-09-01] MEDS: GABAPENTIN 300 MG CAPSULE PO SCH ×3 (16:55→22:15)
[2022-09-01] MEDS: ALLOPURINOL 300 MG TABLET (ZYLOPRIM) PO SCH (16:56)
[2022-09-01 20:00] VITALS: BP_SYST 129
[2022-09-01] MEDS: CARVEDILOL 6.25 MG TABLET (COREG) PO SCH (22:14)
[2022-09-01] MEDS: LIDOCAINE PATCH 5% 1 EA TP SCH (22:17)
[2022-09-02] VITALS: BP_SYST 136
[2022-09-02] MEDS: LevALBUTEROL HCL 1.25 MG/0.5 ML *CONC.* VIAL.NEB (XOPENEX CONC.) INH SCH ×4 (01:00→21:00)
[2022-09-02] MEDS: VANCOMYCIN HCL 750 MG in NS 250 ML IV SCH (06:22)
[2022-09-02 06:31] LABS: BASOPHILS % (AUTO) 0.5 % (0.0-2.0); EOSINOPHILS % (AUTO) 0.9 % (0.0-4.0); HEMATOCRIT 24.3 % (36-48); HEMOGLOBIN 7.5 g/dL (12.0-16.0); LYMPHOCYTES % (AUTO) 36.7 % (20.5-51.5); MEAN CORPUSCULAR HEMOGLOBIN 29 pg (27-31); MEAN CORPUSCULAR HGB CONC 31 % (32-36); MEAN CORPUSCULAR VOLUME 95 fL (79.0-98.0); MONOCYTES # (AUTO) 0.5 K/uL (0.0-1.0); MONOCYTES % (AUTO) 8.8 % (1.7-9.3); NEUTROPHILS # (AUTO) 2.8 K/uL (1.8-7.7); NEUTROPHILS % (AUTO) 53.1 % (40.0-70.0); PLATELET COUNT (AUTO) 100 K/uL (130-430); RED BLOOD CELL COUNT(AUTO) 2.57 MIL/uL (4.2-6.2); RED CELL DISTRIBUTION WIDTH 18.1 % (9.0-15.0)
[2022-09-02 06:44] LABS: UREA NITROGEN, BLOOD 32 mg/dL (8-21)
[2022-09-02 07:29] LABS: ANION GAP 2 (5-15); CALCIUM 9.3 mg/dL (8.4-11.0); CHLORIDE 97 mmol/L (98-107); CREATININE 1.45 mg/dL (0.55-1.30); GLUCOSE 97 mg/dL (70-99)
[2022-09-02 07:32] LABS: WHITE BLOOD COUNT (AUTO) 5.4 K/uL (4.8-10.8)
[2022-09-02 08:00] VITALS: BP_SYST 108
[2022-09-02 12:00] VITALS: BP_SYST 114
[2022-09-02] MEDS ORDERED: FUROSEMIDE 20 MG/2 ML VIAL IVP ONE (12:00)
[2022-09-02] MEDS ORDERED: metOLazone 5 MG TABLET PO ONE (12:30)
[2022-09-02] MEDS ORDERED: POTASSIUM CHLORIDE 20 MEQ/PKT PACKET PO ONE (14:45)
[2022-09-02 16:00] VITALS: BP_SYST 112
[2022-09-02] MEDS: CEFEPIME 1 GM in D5W 50 ML IV SCH (19:24)
[2022-09-02] MEDS: FUROSEMIDE 40 MG/4 ML VIAL IVP SCH (19:28)
[2022-09-02] MEDS: MAGNESIUM OXIDE 400 MG TABLET PO SCH (19:29)
[2022-09-02] MEDS: GABAPENTIN 300 MG CAPSULE PO SCH ×2 (19:30→19:40)
[2022-09-02] MEDS: MULTIVITAMINS TAB 1 TABLET PO SCH (19:31)
[2022-09-02] MEDS: ALLOPURINOL 300 MG TABLET (ZYLOPRIM) PO SCH (19:36)
[2022-09-02 20:00] VITALS: BP_SYST 144
[2022-09-03] VITALS (7 sets, daily range): BP systolic 101–143
[2022-09-03] MEDS: GABAPENTIN 300 MG CAPSULE PO SCH ×4 (01:23→21:40)
[2022-09-03] MEDS: CEFEPIME 1 GM in D5W 50 ML IV SCH ×3 (01:23→21:40)
[2022-09-03] MEDS: LIDOCAINE PATCH 5% 1 EA TP SCH ×2 (01:24→21:40)
[2022-09-03] MEDS: CARVEDILOL 6.25 MG TABLET (COREG) PO SCH ×2 (01:24→21:40)
[2022-09-03] MEDS: MEGESTROL ACETATE 400 MG/10 ML UDC PO SCH ×3 (01:24→21:39)
[2022-09-03 06:19] LABS: BASOPHILS % (AUTO) 0.7 % (0.0-2.0); EOSINOPHILS % (AUTO) 0.5 % (0.0-4.0); HEMATOCRIT 31.5 % (36-48); HEMOGLOBIN 10.1 g/dL (12.0-16.0); LYMPHOCYTES # (AUTO) 1.8 K/uL (1.0-5.5); LYMPHOCYTES % (AUTO) 27.5 % (20.5-51.5); MEAN CORPUSCULAR HEMOGLOBIN 30 pg (27-31); MEAN CORPUSCULAR HGB CONC 32 % (32-36); MEAN CORPUSCULAR VOLUME 93 fL (79.0-98.0); MONOCYTES # (AUTO) 0.5 K/uL (0.0-1.0); MONOCYTES % (AUTO) 7.7 % (1.7-9.3); NEUTROPHILS # (AUTO) 4.1 K/uL (1.8-7.7); NEUTROPHILS % (AUTO) 63.6 % (40.0-70.0); PLATELET COUNT (AUTO) 90 K/uL (130-430); RED BLOOD CELL COUNT(AUTO) 3.38 MIL/uL (4.2-6.2); RED CELL DISTRIBUTION WIDTH 17.4 % (9.0-15.0); WHITE BLOOD COUNT (AUTO) 6.4 K/uL (4.8-10.8)
[2022-09-03] MEDS: VANCOMYCIN HCL 750 MG in NS 250 ML IV SCH (06:29)
[2022-09-03 06:33] LABS: TOTAL IRON BIND. CAPACITY 240 ug/dL (250-450)
[2022-09-03 06:57] LABS: ALANINE AMINOTRANSFERASE 9 U/L (12-78); ALBUMIN 2.1 g/dL (3.4-4.8); ANION GAP 4 (5-15); ASPARTATE AMINOTRANSFERASE 14 U/L (10-37); CALCIUM 9.4 mg/dL (8.4-11.0); CHLORIDE 96 mmol/L (98-107); CREATININE 1.79 mg/dL (0.55-1.30); GLUCOSE 119 mg/dL (70-99); TOTAL BILIRUBIN 1.1 mg/dL (0.0-1.0); UREA NITROGEN, BLOOD 31 mg/dL (8-21)
[2022-09-03] MEDS: LevALBUTEROL HCL 1.25 MG/0.5 ML *CONC.* VIAL.NEB (XOPENEX CONC.) INH SCH ×3 (07:11→19:26)
[2022-09-03] MEDS: MAGNESIUM OXIDE 400 MG TABLET PO SCH (08:54)
[2022-09-03] MEDS: FUROSEMIDE 40 MG/4 ML VIAL IVP SCH (08:54)
[2022-09-03] MEDS: metOLazone 5 MG TABLET PO SCH (08:54)
[2022-09-03] MEDS: ALLOPURINOL 300 MG TABLET (ZYLOPRIM) PO SCH (08:54)
[2022-09-03] MEDS: MULTIVITAMINS TAB 1 TABLET PO SCH (08:54)
[2022-09-03] MEDS: POTASSIUM CHLORIDE 20 MEQ TAB.PRT.SR PO PRN (09:25)
[2022-09-03] MEDS ORDERED: MUPIROCIN 1 GM OIN.PF.APP NS SCH (11:30)
[2022-09-03] MEDS ORDERED: MUPIROCIN 2% TOPICAL OINTMENT 22 GM NS ONE (12:00)
[2022-09-03 12:02] LABS: INR 1.3 (0.8-1.2); PROTHROMBIN TIME 12.7 SECS (9.5-12.5)
[2022-09-03] MEDS ORDERED: POTASSIUM CHLORIDE 40 MEQ in NS 250 ML IV ONE (14:30)
[2022-09-03] MEDS: MUPIROCIN 2% TOPICAL OINTMENT 22 GM NS SCH (21:43)
[2022-09-04 00:33] VITALS: BP_SYST 127
[2022-09-04] MEDS: LevALBUTEROL HCL 1.25 MG/0.5 ML *CONC.* VIAL.NEB (XOPENEX CONC.) INH SCH ×4 (01:00→20:15)
[2022-09-04 06:24] LABS: CALCIUM 9.8 mg/dL (8.4-11.0); CHLORIDE 96 mmol/L (98-107); CREATININE 1.58 mg/dL (0.55-1.30); GLUCOSE 93 mg/dL (70-99); UREA NITROGEN, BLOOD 35 mg/dL (8-21)
[2022-09-04] MEDS: VANCOMYCIN HCL 750 MG in NS 250 ML IV SCH (06:40)
[2022-09-04 07:34] LABS: BASOPHILS % (AUTO) 0.5 % (0.0-2.0); EOSINOPHILS % (AUTO) 0.6 % (0.0-4.0); HEMATOCRIT 31.3 % (36-48); HEMOGLOBIN 10.2 g/dL (12.0-16.0); LYMPHOCYTES # (AUTO) 1.8 K/uL (1.0-5.5); LYMPHOCYTES % (AUTO) 29.6 % (20.5-51.5); MEAN CORPUSCULAR HEMOGLOBIN 30 pg (27-31); MEAN CORPUSCULAR HGB CONC 33 % (32-36); MEAN CORPUSCULAR VOLUME 94 fL (79.0-98.0); MONOCYTES # (AUTO) 0.5 K/uL (0.0-1.0); MONOCYTES % (AUTO) 8.6 % (1.7-9.3); NEUTROPHILS # (AUTO) 3.7 K/uL (1.8-7.7); NEUTROPHILS % (AUTO) 60.7 % (40.0-70.0); PLATELET COUNT (AUTO) 85 K/uL (130-430); RED BLOOD CELL COUNT(AUTO) 3.35 MIL/uL (4.2-6.2); RED CELL DISTRIBUTION WIDTH 17.3 % (9.0-15.0)
[2022-09-04 07:39] VITALS: BP_SYST 129
[2022-09-04 07:48] LABS: ANION GAP 5 (5-15)
[2022-09-04] MEDS: CEFEPIME 1 GM in D5W 50 ML IV SCH ×2 (08:20→21:26)
[2022-09-04] MEDS: MAGNESIUM OXIDE 400 MG TABLET PO SCH (09:40)
[2022-09-04] MEDS: MEGESTROL ACETATE 400 MG/10 ML UDC PO SCH ×2 (09:40→21:26)
[2022-09-04] MEDS: MULTIVITAMINS TAB 1 TABLET PO SCH (09:40)
[2022-09-04] MEDS: GABAPENTIN 300 MG CAPSULE PO SCH ×3 (09:40→21:26)
[2022-09-04] MEDS: metOLazone 5 MG TABLET PO SCH (09:41)
[2022-09-04] MEDS: ALLOPURINOL 300 MG TABLET (ZYLOPRIM) PO SCH (09:41)
[2022-09-04] MEDS: FUROSEMIDE 40 MG/4 ML VIAL IVP SCH (09:42)
[2022-09-04] MEDS: MUPIROCIN 2% TOPICAL OINTMENT 22 GM NS SCH ×2 (09:45→21:26)
[2022-09-04 11:55] VITALS: BP_SYST 119
[2022-09-04 13:07] LABS: FOLATE (FOLIC ACID) 9.7 ng/mL (>3.0)
[2022-09-04 18:03] VITALS: BP_SYST 136
[2022-09-04 19:41] VITALS: BP_SYST 125
[2022-09-04] MEDS: CARVEDILOL 6.25 MG TABLET (COREG) PO SCH (21:00)
[2022-09-04] MEDS: LIDOCAINE PATCH 5% 1 EA TP SCH (21:26)
[2022-09-05] VITALS: BP_SYST 146
[2022-09-05] MEDS: LevALBUTEROL HCL 1.25 MG/0.5 ML *CONC.* VIAL.NEB (XOPENEX CONC.) INH SCH ×3 (01:00→13:57)
[2022-09-05 04:14] LABS: BASOPHILS % (AUTO) 0.7 % (0.0-2.0); EOSINOPHILS # (AUTO) 0.1 K/uL (0.0-0.4); EOSINOPHILS % (AUTO) 0.8 % (0.0-4.0); HEMATOCRIT 34.2 % (36-48); HEMOGLOBIN 11.1 g/dL (12.0-16.0); LYMPHOCYTES # (AUTO) 1.5 K/uL (1.0-5.5); LYMPHOCYTES % (AUTO) 24.7 % (20.5-51.5); MEAN CORPUSCULAR HEMOGLOBIN 30 pg (27-31); MEAN CORPUSCULAR HGB CONC 33 % (32-36); MEAN CORPUSCULAR VOLUME 93 fL (79.0-98.0); MONOCYTES # (AUTO) 0.5 K/uL (0.0-1.0); MONOCYTES % (AUTO) 8.6 % (1.7-9.3); NEUTROPHILS # (AUTO) 4.1 K/uL (1.8-7.7); NEUTROPHILS % (AUTO) 65.2 % (40.0-70.0); PLATELET COUNT (AUTO) 85 K/uL (130-430); RED CELL DISTRIBUTION WIDTH 17.5 % (9.0-15.0); WHITE BLOOD COUNT (AUTO) 6.2 K/uL (4.8-10.8)
[2022-09-05 04:43] LABS: ANION GAP 3 (5-15); CALCIUM 10.5 mg/dL (8.4-11.0); CHLORIDE 90 mmol/L (98-107); GLUCOSE 94 mg/dL (70-99); UREA NITROGEN, BLOOD 38 mg/dL (8-21)
[2022-09-05] MEDS ORDERED: KCL 40 mEq in 100 mL (PREMIX) 100 ML IV ONE (05:45)
[2022-09-05] MEDS ORDERED: POTASSIUM CHLORIDE 20 MEQ/PKT PACKET PO ONE ×2 (05:45→17:45)
[2022-09-05 07:58] VITALS: BP_SYST 144
[2022-09-05] MEDS: APIXABAN 2.5 MG TABLET PO SCH ×2 (09:00→20:49)
[2022-09-05] MEDS: CEFEPIME 1 GM in D5W 50 ML IV SCH ×2 (10:11→20:49)
[2022-09-05] MEDS: FUROSEMIDE 40 MG/4 ML VIAL IVP SCH (10:13)
[2022-09-05] MEDS: MUPIROCIN 2% TOPICAL OINTMENT 22 GM NS SCH ×2 (10:55→20:49)
[2022-09-05] MEDS: MEGESTROL ACETATE 400 MG/10 ML UDC PO SCH ×2 (10:55→20:47)
[2022-09-05] MEDS: MAGNESIUM OXIDE 400 MG TABLET PO SCH (10:56)
[2022-09-05] MEDS: GABAPENTIN 300 MG CAPSULE PO SCH ×3 (10:56→20:48)
[2022-09-05] MEDS: MULTIVITAMINS TAB 1 TABLET PO SCH (10:57)
[2022-09-05] MEDS: ALLOPURINOL 300 MG TABLET (ZYLOPRIM) PO SCH (10:58)
[2022-09-05] MEDS: metOLazone 5 MG TABLET PO SCH (10:58)
[2022-09-05 12:12] VITALS: BP_SYST 108
[2022-09-05 16:00] VITALS: BP_SYST 111
[2022-09-05 16:10] LABS: ANION GAP 1 (5-15); CHLORIDE 91 mmol/L (98-107); CREATININE 1.61 mg/dL (0.55-1.30); GLUCOSE 170 mg/dL (70-99); UREA NITROGEN, BLOOD 41 mg/dL (8-21)
[2022-09-05 20:00] VITALS: BP_SYST 135
[2022-09-05] MEDS: CARVEDILOL 6.25 MG TABLET (COREG) PO SCH (20:48)
[2022-09-05] MEDS: LIDOCAINE PATCH 5% 1 EA TP SCH (20:48)
[2022-09-06] VITALS: BP_SYST 130
[2022-09-06 05:20] LABS: BASOPHILS % (AUTO) 0.4 % (0.0-2.0); EOSINOPHILS % (AUTO) 0.6 % (0.0-4.0); HEMATOCRIT 32.4 % (36-48); HEMOGLOBIN 10.4 g/dL (12.0-16.0); LYMPHOCYTES # (AUTO) 1.8 K/uL (1.0-5.5); LYMPHOCYTES % (AUTO) 33.7 % (20.5-51.5); MEAN CORPUSCULAR HEMOGLOBIN 30 pg (27-31); MEAN CORPUSCULAR HGB CONC 32 % (32-36); MEAN CORPUSCULAR VOLUME 93 fL (79.0-98.0); MONOCYTES # (AUTO) 0.7 K/uL (0.0-1.0); MONOCYTES % (AUTO) 12.5 % (1.7-9.3); NEUTROPHILS # (AUTO) 2.9 K/uL (1.8-7.7); NEUTROPHILS % (AUTO) 52.8 % (40.0-70.0); PLATELET COUNT (AUTO) 77 K/uL (130-430); RED BLOOD CELL COUNT(AUTO) 3.46 MIL/uL (4.2-6.2); RED CELL DISTRIBUTION WIDTH 17.6 % (9.0-15.0); WHITE BLOOD COUNT (AUTO) 5.4 K/uL (4.8-10.8)
[2022-09-06 05:50] LABS: ANION GAP 2 (5-15); CALCIUM 10.1 mg/dL (8.4-11.0); CHLORIDE 94 mmol/L (98-107); CREATININE 1.58 mg/dL (0.55-1.30); GLUCOSE 97 mg/dL (70-99); UREA NITROGEN, BLOOD 43 mg/dL (8-21)
[2022-09-06] MEDS: LevALBUTEROL HCL 1.25 MG/0.5 ML *CONC.* VIAL.NEB (XOPENEX CONC.) INH SCH ×5 (05:57→20:45)
[2022-09-06] MEDS: VANCOMYCIN HCL 750 MG in NS 250 ML IV SCH (06:00)
[2022-09-06] MEDS ORDERED: POTASSIUM CHLORIDE 20 MEQ/PKT PACKET PO ONE (06:30)
[2022-09-06 07:45] VITALS: BP_SYST 129
[2022-09-06] MEDS: MUPIROCIN 2% TOPICAL OINTMENT 22 GM NS SCH ×2 (08:32→20:29)
[2022-09-06] MEDS: APIXABAN 2.5 MG TABLET PO SCH ×2 (08:33→20:28)
[2022-09-06] MEDS: MEGESTROL ACETATE 400 MG/10 ML UDC PO SCH ×2 (08:35→20:27)
[2022-09-06] MEDS: MAGNESIUM OXIDE 400 MG TABLET PO SCH (08:35)
[2022-09-06] MEDS: MULTIVITAMINS TAB 1 TABLET PO SCH (08:36)
[2022-09-06] MEDS: GABAPENTIN 300 MG CAPSULE PO SCH ×3 (08:36→20:27)
[2022-09-06] MEDS: metOLazone 5 MG TABLET PO SCH (08:38)
[2022-09-06] MEDS: ALLOPURINOL 300 MG TABLET (ZYLOPRIM) PO SCH (08:38)
[2022-09-06] MEDS: POTASSIUM CHLORIDE 20 MEQ/PKT PACKET PO SCH (08:39)
[2022-09-06] MEDS: FUROSEMIDE 40 MG/4 ML VIAL IVP SCH (09:22)
[2022-09-06] MEDS: CEFEPIME 1 GM in D5W 50 ML IV SCH ×2 (09:22→20:28)
[2022-09-06 10:54] VITALS: BP_SYST 129
[2022-09-06 12:02] VITALS: BP_SYST 139
[2022-09-06 16:00] VITALS: BP_SYST 140
[2022-09-06] MEDS ORDERED: FUROSEMIDE 20 MG/2 ML VIAL IVP ONE (17:45)
[2022-09-06] MEDS: CARVEDILOL 6.25 MG TABLET (COREG) PO SCH (20:27)
[2022-09-06] MEDS: LIDOCAINE PATCH 5% 1 EA TP SCH (20:28)
[2022-09-07] VITALS: BP_SYST 125
[2022-09-07] MEDS: LevALBUTEROL HCL 1.25 MG/0.5 ML *CONC.* VIAL.NEB (XOPENEX CONC.) INH SCH ×3 (01:53→13:52)
[2022-09-07 04:53] LABS: ALANINE AMINOTRANSFERASE 10 U/L (12-78); ALBUMIN 2.1 g/dL (3.4-4.8); ASPARTATE AMINOTRANSFERASE 21 U/L (10-37); CALCIUM 10.1 mg/dL (8.4-11.0); CHLORIDE 94 mmol/L (98-107); CREATININE 1.75 mg/dL (0.55-1.30); GLUCOSE 99 mg/dL (70-99); TOTAL BILIRUBIN 0.7 mg/dL (0.0-1.0); UREA NITROGEN, BLOOD 48 mg/dL (8-21)
[2022-09-07 05:11] LABS: ANION GAP 0 (5-15)
[2022-09-07] MEDS: VANCOMYCIN HCL 750 MG in NS 250 ML IV SCH (05:49)
[2022-09-07 08:00] VITALS: BP_SYST 123
[2022-09-07] MEDS: FUROSEMIDE 40 MG/4 ML VIAL IVP SCH (09:33)
[2022-09-07] MEDS: ALLOPURINOL 300 MG TABLET (ZYLOPRIM) PO SCH (09:33)
[2022-09-07] MEDS: MAGNESIUM OXIDE 400 MG TABLET PO SCH (09:34)
[2022-09-07] MEDS: MEGESTROL ACETATE 400 MG/10 ML UDC PO SCH ×2 (09:34→20:16)
[2022-09-07] MEDS: metOLazone 5 MG TABLET PO SCH (09:34)
[2022-09-07] MEDS: GABAPENTIN 300 MG CAPSULE PO SCH ×3 (09:34→20:16)
[2022-09-07] MEDS: MULTIVITAMINS TAB 1 TABLET PO SCH (09:35)
[2022-09-07] MEDS: POTASSIUM CHLORIDE 20 MEQ/PKT PACKET PO SCH (09:35)
[2022-09-07] MEDS: APIXABAN 2.5 MG TABLET PO SCH ×2 (09:39→20:17)
[2022-09-07] MEDS: MUPIROCIN 2% TOPICAL OINTMENT 22 GM NS SCH ×2 (09:40→20:17)
[2022-09-07 12:41] VITALS: BP_SYST 126
[2022-09-07 16:19] VITALS: BP_SYST 124
[2022-09-07] MEDS: POTASSIUM CHLORIDE 40 MEQ in D5W 250 ML IV SCH ×2 (16:36→22:46)
[2022-09-07] MEDS: D5W 500 ML IV SCH (18:46)
[2022-09-07 20:00] VITALS: BP_SYST 143
[2022-09-07] MEDS: CARVEDILOL 6.25 MG TABLET (COREG) PO SCH (20:16)
[2022-09-07] MEDS: LIDOCAINE PATCH 5% 1 EA TP SCH (20:17)
[2022-09-08] VITALS: BP_SYST 115
[2022-09-08] MEDS: LevALBUTEROL HCL 1.25 MG/0.5 ML *CONC.* VIAL.NEB (XOPENEX CONC.) INH SCH ×4 (01:24→20:00)
[2022-09-08] MEDS: D5W 500 ML IV SCH ×3 (04:36→21:31)
[2022-09-08 06:11] LABS: BASOPHILS % (AUTO) 0.4 % (0.0-2.0); EOSINOPHILS % (AUTO) 0.4 % (0.0-4.0); HEMATOCRIT 36.2 % (36-48); HEMOGLOBIN 11.6 g/dL (12.0-16.0); LYMPHOCYTES # (AUTO) 2.5 K/uL (1.0-5.5); LYMPHOCYTES % (AUTO) 44.3 % (20.5-51.5); MEAN CORPUSCULAR HEMOGLOBIN 30 pg (27-31); MEAN CORPUSCULAR HGB CONC 32 % (32-36); MEAN CORPUSCULAR VOLUME 93 fL (79.0-98.0); MONOCYTES # (AUTO) 0.6 K/uL (0.0-1.0); MONOCYTES % (AUTO) 10.9 % (1.7-9.3); NEUTROPHILS # (AUTO) 2.4 K/uL (1.8-7.7); PLATELET COUNT (AUTO) 73 K/uL (130-430); RED BLOOD CELL COUNT(AUTO) 3.88 MIL/uL (4.2-6.2); RED CELL DISTRIBUTION WIDTH 17.7 % (9.0-15.0); WHITE BLOOD COUNT (AUTO) 5.5 K/uL (4.8-10.8)
[2022-09-08 06:32] LABS: ALANINE AMINOTRANSFERASE 13 U/L (12-78); ALBUMIN 2.3 g/dL (3.4-4.8); ANION GAP 0 (5-15); ASPARTATE AMINOTRANSFERASE 21 U/L (10-37); CALCIUM 10.1 mg/dL (8.4-11.0); CHLORIDE 92 mmol/L (98-107); CREATININE 1.88 mg/dL (0.55-1.30); GLUCOSE 110 mg/dL (70-99); TOTAL BILIRUBIN 0.7 mg/dL (0.0-1.0); UREA NITROGEN, BLOOD 54 mg/dL (8-21)
[2022-09-08] MEDS: VANCOMYCIN HCL 750 MG in NS 250 ML IV SCH (06:38)
[2022-09-08 08:06] VITALS: BP_SYST 117
[2022-09-08] MEDS: MAGNESIUM OXIDE 400 MG TABLET PO SCH (09:19)
[2022-09-08] MEDS: MEGESTROL ACETATE 400 MG/10 ML UDC PO SCH ×2 (09:19→21:27)
[2022-09-08] MEDS: GABAPENTIN 300 MG CAPSULE PO SCH ×3 (09:20→21:27)
[2022-09-08] MEDS: ALLOPURINOL 300 MG TABLET (ZYLOPRIM) PO SCH (09:20)
[2022-09-08] MEDS: metOLazone 5 MG TABLET PO SCH (09:20)
[2022-09-08] MEDS: MULTIVITAMINS TAB 1 TABLET PO SCH (09:20)
[2022-09-08] MEDS: FUROSEMIDE 40 MG/4 ML VIAL IVP SCH (09:21)
[2022-09-08] MEDS: MUPIROCIN 2% TOPICAL OINTMENT 22 GM NS SCH ×2 (09:22→21:31)
[2022-09-08] MEDS: APIXABAN 2.5 MG TABLET PO SCH ×2 (09:24→21:28)
[2022-09-08 12:00] VITALS: BP_SYST 116
[2022-09-08 16:54] VITALS: BP_SYST 118
[2022-09-08 21:00] VITALS: BP_SYST 135
[2022-09-08] MEDS: LIDOCAINE PATCH 5% 1 EA TP SCH (21:26)
[2022-09-08] MEDS: CARVEDILOL 6.25 MG TABLET (COREG) PO SCH (21:30)
[2022-09-09] MEDS: LevALBUTEROL HCL 1.25 MG/0.5 ML *CONC.* VIAL.NEB (XOPENEX CONC.) INH SCH ×4 (01:34→20:17)
[2022-09-09 01:45] VITALS: BP_SYST 120
[2022-09-09 05:27] LABS: BASOPHILS % (AUTO) 0.2 % (0.0-2.0); EOSINOPHILS % (AUTO) 0.5 % (0.0-4.0); HEMOGLOBIN 10.9 g/dL (12.0-16.0); LYMPHOCYTES # (AUTO) 2.6 K/uL (1.0-5.5); LYMPHOCYTES % (AUTO) 41.7 % (20.5-51.5); MEAN CORPUSCULAR HEMOGLOBIN 30 pg (27-31); MEAN CORPUSCULAR HGB CONC 32 % (32-36); MEAN CORPUSCULAR VOLUME 93 fL (79.0-98.0); MONOCYTES # (AUTO) 0.6 K/uL (0.0-1.0); MONOCYTES % (AUTO) 8.9 % (1.7-9.3); NEUTROPHILS % (AUTO) 48.7 % (40.0-70.0); PLATELET COUNT (AUTO) 70 K/uL (130-430); RED BLOOD CELL COUNT(AUTO) 3.65 MIL/uL (4.2-6.2); RED CELL DISTRIBUTION WIDTH 17.7 % (9.0-15.0); WHITE BLOOD COUNT (AUTO) 6.2 K/uL (4.8-10.8)
[2022-09-09 05:55] LABS: ALANINE AMINOTRANSFERASE 12 U/L (12-78); ALBUMIN 2.1 g/dL (3.4-4.8); ANION GAP 1 (5-15); ASPARTATE AMINOTRANSFERASE 66 U/L (10-37); CALCIUM 9.7 mg/dL (8.4-11.0); CHLORIDE 90 mmol/L (98-107); CREATININE 1.88 mg/dL (0.55-1.30); GLUCOSE 92 mg/dL (70-99); TOTAL BILIRUBIN 0.7 mg/dL (0.0-1.0); UREA NITROGEN, BLOOD 54 mg/dL (8-21); VANCOMYCIN,RANDOM 26.1 ug/mL
[2022-09-09] MEDS: D5W 500 ML IV SCH ×2 (09:00→18:41)
[2022-09-09] MEDS: MEGESTROL ACETATE 400 MG/10 ML UDC PO SCH ×2 (10:12→21:03)
[2022-09-09] MEDS: GABAPENTIN 300 MG CAPSULE PO SCH ×3 (10:13→21:03)
[2022-09-09] MEDS: ALLOPURINOL 300 MG TABLET (ZYLOPRIM) PO SCH (10:13)
[2022-09-09] MEDS: MULTIVITAMINS TAB 1 TABLET PO SCH (10:13)
[2022-09-09] MEDS: APIXABAN 2.5 MG TABLET PO SCH ×2 (10:15→21:06)
[2022-09-09] MEDS: FUROSEMIDE 40 MG/4 ML VIAL IVP SCH (10:16)
[2022-09-09] MEDS: MAGNESIUM OXIDE 400 MG TABLET PO SCH (10:17)
[2022-09-09] MEDS: metOLazone 5 MG TABLET PO SCH (10:18)
[2022-09-09] MEDS: MUPIROCIN 2% TOPICAL OINTMENT 22 GM NS SCH ×2 (10:18→21:04)
[2022-09-09 12:00] VITALS: BP_SYST 125
[2022-09-09] MEDS: POTASSIUM CHLORIDE 40 MEQ in D5W 250 ML IV SCH ×2 (13:43→18:40)
[2022-09-09 16:00] VITALS: BP_SYST 123
[2022-09-09 21:00] VITALS: BP_SYST 135
[2022-09-09] MEDS: CARVEDILOL 6.25 MG TABLET (COREG) PO SCH (21:03)
[2022-09-09] MEDS: LIDOCAINE PATCH 5% 1 EA TP SCH (21:04)
[2022-09-10 01:34] VITALS: BP_SYST 134
[2022-09-10] MEDS: D5W 500 ML IV SCH ×2 (01:52→15:59)
[2022-09-10] MEDS: LevALBUTEROL HCL 1.25 MG/0.5 ML *CONC.* VIAL.NEB (XOPENEX CONC.) INH SCH ×4 (02:15→20:00)
[2022-09-10 07:02] LABS: BASOPHILS % (AUTO) 0.2 % (0.0-2.0); EOSINOPHILS % (AUTO) 0.3 % (0.0-4.0); HEMATOCRIT 34.2 % (36-48); HEMOGLOBIN 11.1 g/dL (12.0-16.0); LYMPHOCYTES # (AUTO) 2.4 K/uL (1.0-5.5); LYMPHOCYTES % (AUTO) 32.5 % (20.5-51.5); MEAN CORPUSCULAR HEMOGLOBIN 30 pg (27-31); MEAN CORPUSCULAR HGB CONC 33 % (32-36); MEAN CORPUSCULAR VOLUME 92 fL (79.0-98.0); MONOCYTES # (AUTO) 0.5 K/uL (0.0-1.0); NEUTROPHILS # (AUTO) 4.4 K/uL (1.8-7.7); PLATELET COUNT (AUTO) 72 K/uL (130-430); RED BLOOD CELL COUNT(AUTO) 3.72 MIL/uL (4.2-6.2); RED CELL DISTRIBUTION WIDTH 17.5 % (9.0-15.0); WHITE BLOOD COUNT (AUTO) 7.3 K/uL (4.8-10.8)
[2022-09-10 07:40] LABS: ALANINE AMINOTRANSFERASE 17 U/L (12-78); ALBUMIN 2.1 g/dL (3.4-4.8); ANION GAP 7 (5-15); ASPARTATE AMINOTRANSFERASE 48 U/L (10-37); CALCIUM 9.5 mg/dL (8.4-11.0); CHLORIDE 88 mmol/L (98-107); CREATININE 2.08 mg/dL (0.55-1.30); GLUCOSE 84 mg/dL (70-99); TOTAL BILIRUBIN 0.6 mg/dL (0.0-1.0); UREA NITROGEN, BLOOD 56 mg/dL (8-21)
[2022-09-10] MEDS: ALLOPURINOL 300 MG TABLET (ZYLOPRIM) PO SCH (09:00)
[2022-09-10 09:10] LABS: VANCOMYCIN,RANDOM 23.4 ug/mL
[2022-09-10] MEDS: MAGNESIUM OXIDE 400 MG TABLET PO SCH (09:11)
[2022-09-10] MEDS: MULTIVITAMINS TAB 1 TABLET PO SCH (09:11)
[2022-09-10] MEDS: MEGESTROL ACETATE 400 MG/10 ML UDC PO SCH ×2 (09:11→21:42)
[2022-09-10] MEDS: metOLazone 5 MG TABLET PO SCH (09:12)
[2022-09-10] MEDS: GABAPENTIN 300 MG CAPSULE PO SCH ×3 (09:14→21:45)
[2022-09-10] MEDS: MUPIROCIN 2% TOPICAL OINTMENT 22 GM NS SCH ×2 (09:17→22:24)
[2022-09-10] MEDS: APIXABAN 2.5 MG TABLET PO SCH ×2 (09:23→21:45)
[2022-09-10] MEDS: POTASSIUM CHLORIDE 20 MEQ TAB.PRT.SR PO PRN (09:23)
[2022-09-10 11:00] VITALS: BP_SYST 123
[2022-09-10] MEDS: FUROSEMIDE 40 MG/4 ML VIAL IVP SCH (11:13)
[2022-09-10] MEDS: POTASSIUM CHLORIDE 40 MEQ in D5W 250 ML IV SCH ×2 (12:15→16:21)
[2022-09-10 16:05] VITALS: BP_SYST 122
[2022-09-10 20:00] VITALS: BP_SYST 129
[2022-09-10] MEDS: CARVEDILOL 6.25 MG TABLET (COREG) PO SCH (21:43)
[2022-09-10] MEDS: LIDOCAINE PATCH 5% 1 EA TP SCH (21:45)
[2022-09-11 00:24] VITALS: BP_SYST 116
[2022-09-11] MEDS: D5W 500 ML IV SCH (01:00)
[2022-09-11] MEDS: LevALBUTEROL HCL 1.25 MG/0.5 ML *CONC.* VIAL.NEB (XOPENEX CONC.) INH SCH ×4 (01:06→20:12)
[2022-09-11 04:45] VITALS: BP_SYST 129
[2022-09-11] MEDS: ALLOPURINOL 300 MG TABLET (ZYLOPRIM) PO SCH (09:17)
[2022-09-11] MEDS: MEGESTROL ACETATE 400 MG/10 ML UDC PO SCH ×2 (09:17→20:18)
[2022-09-11] MEDS: MULTIVITAMINS TAB 1 TABLET PO SCH (09:21)
[2022-09-11] MEDS: metOLazone 5 MG TABLET PO SCH (09:21)
[2022-09-11] MEDS: MAGNESIUM OXIDE 400 MG TABLET PO SCH (09:21)
[2022-09-11] MEDS: GABAPENTIN 300 MG CAPSULE PO SCH ×3 (09:21→20:18)
[2022-09-11] MEDS: MUPIROCIN 2% TOPICAL OINTMENT 22 GM NS SCH ×2 (09:22→20:18)
[2022-09-11] MEDS: APIXABAN 2.5 MG TABLET PO SCH ×2 (09:29→20:19)
[2022-09-11] MEDS: FUROSEMIDE 40 MG/4 ML VIAL IVP SCH (10:44)
[2022-09-11 11:10] VITALS: BP_SYST 117
[2022-09-11 15:20] VITALS: BP_SYST 118
[2022-09-11 20:00] VITALS: BP_SYST 120
[2022-09-11] MEDS: CARVEDILOL 6.25 MG TABLET (COREG) PO SCH (20:18)
[2022-09-11] MEDS: LIDOCAINE PATCH 5% 1 EA TP SCH (20:21)
[2022-09-11 23:28] VITALS: BP_SYST 120
[2022-09-12] MEDS: LevALBUTEROL HCL 1.25 MG/0.5 ML *CONC.* VIAL.NEB (XOPENEX CONC.) INH SCH ×4 (01:31→19:51)
[2022-09-12 03:33] VITALS: BP_SYST 120
[2022-09-12 06:05] LABS: BASOPHILS % (AUTO) 0.1 % (0.0-2.0); EOSINOPHILS % (AUTO) 0.6 % (0.0-4.0); HEMATOCRIT 32.4 % (36-48); HEMOGLOBIN 10.5 g/dL (12.0-16.0); LYMPHOCYTES # (AUTO) 2.5 K/uL (1.0-5.5); LYMPHOCYTES % (AUTO) 34.6 % (20.5-51.5); MEAN CORPUSCULAR HEMOGLOBIN 30 pg (27-31); MEAN CORPUSCULAR HGB CONC 33 % (32-36); MEAN CORPUSCULAR VOLUME 91 fL (79.0-98.0); MONOCYTES # (AUTO) 0.6 K/uL (0.0-1.0); MONOCYTES % (AUTO) 7.9 % (1.7-9.3); NEUTROPHILS # (AUTO) 4.1 K/uL (1.8-7.7); NEUTROPHILS % (AUTO) 56.8 % (40.0-70.0); PLATELET COUNT (AUTO) 79 K/uL (130-430); RED BLOOD CELL COUNT(AUTO) 3.56 MIL/uL (4.2-6.2); RED CELL DISTRIBUTION WIDTH 16.5 % (9.0-15.0); WHITE BLOOD COUNT (AUTO) 7.3 K/uL (4.8-10.8)
[2022-09-12 06:37] LABS: ALANINE AMINOTRANSFERASE 20 U/L (12-78); ALBUMIN 2.1 g/dL (3.4-4.8); ANION GAP 4 (5-15); ASPARTATE AMINOTRANSFERASE 38 U/L (10-37); CALCIUM 9.4 mg/dL (8.4-11.0); CHLORIDE 90 mmol/L (98-107); CREATININE 2.27 mg/dL (0.55-1.30); GLUCOSE 95 mg/dL (70-99); TOTAL BILIRUBIN 0.5 mg/dL (0.0-1.0); UREA NITROGEN, BLOOD 66 mg/dL (8-21); VANCOMYCIN,RANDOM 16.5 ug/mL
[2022-09-12] MEDS: D5W 500 ML IV SCH ×3 (07:00→15:31)
[2022-09-12] MEDS: MEGESTROL ACETATE 400 MG/10 ML UDC PO SCH ×2 (08:26→21:39)
[2022-09-12] MEDS: MUPIROCIN 2% TOPICAL OINTMENT 22 GM NS SCH ×2 (08:26→21:00)
[2022-09-12] MEDS: GABAPENTIN 300 MG CAPSULE PO SCH ×3 (08:27→21:44)
[2022-09-12] MEDS: MAGNESIUM OXIDE 400 MG TABLET PO SCH (08:27)
[2022-09-12] MEDS: ALLOPURINOL 300 MG TABLET (ZYLOPRIM) PO SCH (08:27)
[2022-09-12] MEDS: MULTIVITAMINS TAB 1 TABLET PO SCH (08:28)
[2022-09-12] MEDS: APIXABAN 2.5 MG TABLET PO SCH ×2 (08:29→21:43)
[2022-09-12] MEDS: FUROSEMIDE 40 MG/4 ML VIAL IVP SCH (08:36)
[2022-09-12] MEDS: metOLazone 5 MG TABLET PO SCH (08:38)
[2022-09-12 11:40] VITALS: BP_SYST 118
[2022-09-12] MEDS ORDERED: VANCOMYCIN HCL 750 MG in NS 250 ML IV ONE (12:00)
[2022-09-12] MEDS ORDERED: POTASSIUM CHLORIDE 20 MEQ TAB.PRT.SR PO ONE ×2 (13:00→17:15)
[2022-09-12] MEDS ORDERED: POTASSIUM CHLORIDE 20 MEQ TAB.PRT.SR PO SCH (14:15)
[2022-09-12 16:00] VITALS: BP_SYST 115
[2022-09-12 20:00] VITALS: BP_SYST 116
[2022-09-12] MEDS: CARVEDILOL 6.25 MG TABLET (COREG) PO SCH (21:41)
[2022-09-12] MEDS: LIDOCAINE PATCH 5% 1 EA TP SCH (21:44)
[2022-09-13] VITALS: BP_SYST 139
[2022-09-13] MEDS: LevALBUTEROL HCL 1.25 MG/0.5 ML *CONC.* VIAL.NEB (XOPENEX CONC.) INH SCH ×4 (01:39→20:34)
[2022-09-13] MEDS: D5W 500 ML IV SCH ×3 (07:00→23:00)
[2022-09-13 08:00] VITALS: BP_SYST 103
[2022-09-13] MEDS: GABAPENTIN 300 MG CAPSULE PO SCH ×3 (10:06→21:51)
[2022-09-13] MEDS: MULTIVITAMINS TAB 1 TABLET PO SCH (10:06)
[2022-09-13] MEDS: MEGESTROL ACETATE 400 MG/10 ML UDC PO SCH ×2 (10:06→21:51)
[2022-09-13] MEDS: ALLOPURINOL 300 MG TABLET (ZYLOPRIM) PO SCH (10:06)
[2022-09-13] MEDS: MAGNESIUM OXIDE 400 MG TABLET PO SCH (10:06)
[2022-09-13] MEDS: metOLazone 5 MG TABLET PO SCH (10:08)
[2022-09-13] MEDS: FUROSEMIDE 40 MG/4 ML VIAL IVP SCH (10:08)
[2022-09-13] MEDS: APIXABAN 2.5 MG TABLET PO SCH ×2 (10:12→21:48)
[2022-09-13 11:22] VITALS: BP_SYST 122
[2022-09-13] MEDS ORDERED: POTASSIUM CHLORIDE 20 MEQ TAB.PRT.SR PO ONE (13:30)
[2022-09-13 15:17] VITALS: BP_SYST 125
[2022-09-13] MEDS: CARVEDILOL 6.25 MG TABLET (COREG) PO SCH (21:45)
[2022-09-13] MEDS: POTASSIUM CHLORIDE 20 MEQ TAB.PRT.SR PO SCH (21:50)
[2022-09-13] MEDS: LIDOCAINE PATCH 5% 1 EA TP SCH (21:52)
[2022-09-14] VITALS: BP_SYST 125
[2022-09-14 01:29] VITALS: BP_SYST 129
[2022-09-14] MEDS: LevALBUTEROL HCL 1.25 MG/0.5 ML *CONC.* VIAL.NEB (XOPENEX CONC.) INH SCH ×3 (02:16→12:21)
[2022-09-14 02:19] VITALS: BP_SYST 129
[2022-09-14 05:44] LABS: BASOPHILS % (AUTO) 0.2 % (0.0-2.0); EOSINOPHILS % (AUTO) 0.4 % (0.0-4.0); HEMATOCRIT 32.5 % (36-48); HEMOGLOBIN 10.7 g/dL (12.0-16.0); LYMPHOCYTES % (AUTO) 39.3 % (20.5-51.5); MEAN CORPUSCULAR HEMOGLOBIN 30 pg (27-31); MEAN CORPUSCULAR HGB CONC 33 % (32-36); MEAN CORPUSCULAR VOLUME 90 fL (79.0-98.0); MONOCYTES # (AUTO) 0.4 K/uL (0.0-1.0); MONOCYTES % (AUTO) 8.3 % (1.7-9.3); NEUTROPHILS # (AUTO) 2.6 K/uL (1.8-7.7); NEUTROPHILS % (AUTO) 51.8 % (40.0-70.0); PLATELET COUNT (AUTO) 89 K/uL (130-430); RED BLOOD CELL COUNT(AUTO) 3.62 MIL/uL (4.2-6.2)
[2022-09-14 06:01] LABS: ANION GAP 5 (5-15); CALCIUM 9.5 mg/dL (8.4-11.0); CHLORIDE 92 mmol/L (98-107); CREATININE 2.14 mg/dL (0.55-1.30); GLUCOSE 106 mg/dL (70-99); UREA NITROGEN, BLOOD 71 mg/dL (8-21); VANCOMYCIN,RANDOM 19.6 ug/mL
[2022-09-14] MEDS: APIXABAN 2.5 MG TABLET PO SCH (09:00)
[2022-09-14] MEDS: FUROSEMIDE 40 MG/4 ML VIAL IVP SCH (10:12)
[2022-09-14] MEDS: D5W 500 ML IV SCH (10:12)
[2022-09-14] MEDS: ALLOPURINOL 300 MG TABLET (ZYLOPRIM) PO SCH (10:14)
[2022-09-14] MEDS: GABAPENTIN 300 MG CAPSULE PO SCH (10:14)
[2022-09-14] MEDS: MAGNESIUM OXIDE 400 MG TABLET PO SCH (10:14)
[2022-09-14] MEDS: metOLazone 5 MG TABLET PO SCH (10:14)
[2022-09-14] MEDS: MULTIVITAMINS TAB 1 TABLET PO SCH (10:14)
[2022-09-14] MEDS: POTASSIUM CHLORIDE 20 MEQ TAB.PRT.SR PO SCH (10:14)
[2022-09-14] MEDS: MEGESTROL ACETATE 400 MG/10 ML UDC PO SCH (10:14)
[2022-09-14 11:29] VITALS: BP_SYST 117
[2022-09-14 11:59] VITALS: BP_SYST 140
== END 2022-09-14 13:50 | disposition home or self-care (01) | DRG 193 ==
LOC: SED 04:42 → SIC 06:08 → STU 12:40
PROVIDERS: ADMIT Family Medicine; ATTEND Family Medicine
PROC: 5A09357 Assistance with Respiratory Ventilation, Less than 24 Consecutive Hours, Continuous Positive Airway Pressure (ICD-10-PCS; 2022-08-31)
PROC: 30233N1 Transfusion of Nonautologous Red Blood Cells into Peripheral Vein, Percutaneous Approach (ICD-10-PCS; 2022-09-02)
PROC: 0W9B3ZZ Drainage of Left Pleural Cavity, Percutaneous Approach (ICD-10-PCS; 2022-09-04)
PROC: 5A09357 Assistance with Respiratory Ventilation, Less than 24 Consecutive Hours, Continuous Positive Airway Pressure (ICD-10-PCS; 2022-09-04)
PROC: 5A09357 Assistance with Respiratory Ventilation, Less than 24 Consecutive Hours, Continuous Positive Airway Pressure (ICD-10-PCS; 2022-09-05)
PROC: 5A09357 Assistance with Respiratory Ventilation, Less than 24 Consecutive Hours, Continuous Positive Airway Pressure (ICD-10-PCS; 2022-09-06)
PROC: 5A09357 Assistance with Respiratory Ventilation, Less than 24 Consecutive Hours, Continuous Positive Airway Pressure (ICD-10-PCS; 2022-09-07)
PROC: 4A00X4Z Measurement of Central Nervous Electrical Activity, External Approach (ICD-10-PCS; principal; 2022-09-08)
PROC: 5A09357 Assistance with Respiratory Ventilation, Less than 24 Consecutive Hours, Continuous Positive Airway Pressure (ICD-10-PCS; 2022-09-08)
PROC: 5A09357 Assistance with Respiratory Ventilation, Less than 24 Consecutive Hours, Continuous Positive Airway Pressure (ICD-10-PCS; 2022-09-09)
PROC: 5A09357 Assistance with Respiratory Ventilation, Less than 24 Consecutive Hours, Continuous Positive Airway Pressure (ICD-10-PCS; 2022-09-13)
DX: J18.9 Pneumonia, unspecified organism (principal); G93.41 Metabolic encephalopathy; J96.21 Acute and chronic respiratory failure with hypoxia; I50.23 Acute on chronic systolic (congestive) heart failure; I13.0 Hypertensive heart and chronic kidney disease with heart failure and stage 1 through stage 4 chronic kidney disease, or unspecified chronic kidney disease; G93.1 Anoxic brain damage, not elsewhere classified; J44.0 Chronic obstructive pulmonary disease with (acute) lower respiratory infection; N39.0 Urinary tract infection, site not specified; J90 Pleural effusion, not elsewhere classified; Z20.822 Contact with and (suspected) exposure to COVID-19; F03.A0 Unspecified dementia, mild, without behavioral disturbance, psychotic disturbance, mood disturbance, and anxiety; I48.91 Unspecified atrial fibrillation; E78.5 Hyperlipidemia, unspecified; D64.9 Anemia, unspecified; N18.9 Chronic kidney disease, unspecified; G89.29 Other chronic pain; Z88.1 Allergy status to other antibiotic agents; Z88.8 Allergy status to other drugs, medicaments and biological substances; Z79.899 Other long term (current) drug therapy
CPT/HCPCS: 32555; 36415; 36600; 70450-TC; 71045; 76376; 80048; 80053; 80202; 81000; 82140; 82272; 82607; 82728; 82746; 82803-TC; 83540; 83550; 83605; 83735; 83880; 84132; 84157; 84484; 84999; 85025; 85610-TC; 85730-TC; 86886; 86900; 86901; 86920; 87040; 87070-TC; 87081; 87086; 93005; 93306; 94640; 94660; 94760; 95816; 96365; 96368; 97110-GP; 97163-GP; 97530-GP; 99285; G0378; J0692; J1940; J2185; J3370; J3480; J7050; J7060; J7612; P9021

== ENCOUNTER 2022-11-08 18:05 | Inpatient (IN) | payer OTHER ==
[~2022-11-08] VITALS: Ht 167.6 cm; Wt 71.7 kg
[2022-11-08] MEDS: NACL 0.9% 1,000 ML IV SCH (01:20)
[~2022-11-08 18:05] MED LIST changes: -AMOX500C2 PO; +BISA10SU77 RC; +MAGN400T7 PO; +MOM PO; +MULT-1117 PO; +POTA-197 PO
[2022-11-08 18:15] VITALS: BP_SYST 94
[2022-11-08] MEDS ORDERED: NS 1000 ML IV.SOLN IV ONE (18:30)
[2022-11-08] MEDS ORDERED: cefTRIAXone 1 GM in D5W 50 ML IV ONE (18:30)
[2022-11-08] MEDS ORDERED: cefTRIAXone 1 GM VIAL ONE (18:31)
--- NOTE | 2022-11-08 18:43 | NUR ---
EKG performed at by ARACELIS EMMANUEL. Physician given copy of EKG for review.
--- NOTE | 2022-11-08 18:50 | NUR ---
# 16 FR Nova catheter with use of sterile technique. Immediate return of 10 cc BLOODY urine noted. Bedside drainage bag placed below level of bladder. Urine sample collected and sent to lab. Pt tolerated procedure WELL.
--- NOTE | 2022-11-08 18:55 | NUR ---
BLOOD DRAWN AND SENT TO LAB.
--- NOTE | 2022-11-08 19:00 | NUR ---
NS 2000CC IV BOLUS INITIATED. ROCEPHIN IVPB GIVEN.
[2022-11-08] MEDS ORDERED: NOREPINEPHRINE 4 MG/4 ML VIAL IV ONE ×2 (19:01→23:40)
--- NOTE | 2022-11-08 19:03 | NUR ---
# 20 gauge angiocath placed to RFA. Use of asceptic technique. Opsite placed over site. Blood return noted. Flushed with 10 cc of normal saline. No evidence of infiltration noted. Patient tolerated well.
[2022-11-08] MEDS ORDERED: NOREPINEPHRINE BITARTRATE 4 MG in NS 246 ML IV ONE ×2 (19:15→23:30)
--- NOTE | 2022-11-08 19:15 | NUR ---
PT'S B/P 85/54 LEVOPHED INITIATED AT 0.2MCG/KG/MIN. WILL CONTINUE TO MONITOR AND TITRATE NEEDED.
[2022-11-08 19:25] LABS: MEAN CORPUSCULAR HEMOGLOBIN 31 pg (27-31); MEAN CORPUSCULAR HGB CONC 33 % (32-36); MEAN CORPUSCULAR VOLUME 93 fL (79.0-98.0); PLATELET COUNT (AUTO) 100 K/uL (130-430); RED CELL DISTRIBUTION WIDTH 22.9 % (9.0-15.0); WHITE BLOOD COUNT (AUTO) 10.5 K/uL (4.8-10.8)
--- NOTE | 2022-11-08 19:31 | NUR ---
PT ENDORSED TO ARACELIS HINDS. ALL QUESTIONS AND CONCERNS ADDRESSED.
[2022-11-08 19:35] LABS: RED BLOOD CELL COUNT(AUTO) 1.87 MIL/uL (4.2-6.2)
[2022-11-08 19:36] LABS: HEMATOCRIT 17.4 % (36-48); HEMOGLOBIN 5.7 g/dL (12.0-16.0)
[2022-11-08 19:40] LABS: ALANINE AMINOTRANSFERASE 25 U/L (12-78); ALBUMIN 1.3 g/dL (3.4-4.8); ANION GAP 12 (5-15); ASPARTATE AMINOTRANSFERASE 37 U/L (10-37); CALCIUM 8.8 mg/dL (8.4-11.0); CHLORIDE 98 mmol/L (98-107); CREATININE 3.29 mg/dL (0.55-1.30); GLUCOSE 119 mg/dL (70-99); TOTAL BILIRUBIN 1.4 mg/dL (0.0-1.0); UREA NITROGEN, BLOOD 73 mg/dL (8-21)
[2022-11-08 19:50] LABS: BAND % (MANUAL) 12 % (0-6); BASOPHILS % (MANUAL) 0 % (0-2); EOSINOPHILS % (MANUAL) 0 % (0-7); LYMPHOCYTES % (MANUAL) 14 % (20-46); MONOCYTES % (MANUAL) 2 % (0-11)
--- NOTE | 2022-11-08 20:01 | NUR ---
Rectal exam performed by DR. LYLES with THIS RN at bedside during procedure. Patient tolerated well.
[2022-11-08 20:31] LABS: CLARITY/URINE TURBID (CLEAR); COLOR,URINE RED (YELLOW)
[2022-11-08 20:32] LABS: BILIRUBIN,URINE NEGATIVE (NEGATIVE); KETONES,URINE NEGATIVE (NEGATIVE); LEUKOCYTE ESTERASE ,URINE 3+ (NEGATIVE); PROTEIN URINE 2+ (NEGATIVE)
[2022-11-08 20:33] LABS: BLOOD, URINE 4+ (NEGATIVE); GLUCOSE,URINE NEGATIVE (NEGATIVE); NITRITE, URINE NEGATIVE (NEGATIVE); UROBILINOGEN,URINE 0.2 (0.2-1.0)
[2022-11-08 20:38] LABS: BACTERIA,URINE MODERATE /HPF (None Seen); MUCUS,URINE None Seen /LPF (None Seen); RBC,URINE >100 /HPF (0-3); WBC,URINE >100 /HPF (0-3)
[2022-11-08 20:39] LABS: URINE AMORPHOUS PHOSPHATES 2+ /HPF (None Seen)
--- NOTE | 2022-11-08 21:51 | NUR ---
[facility] [phone]
--- NOTE | 2022-11-08 22:27 | NUR ---
BLOOD CONSENT SIGNED BY PATIENT AND TRANSFUSION RECORDS SENT TO LAB.
[2022-11-08] MEDS ORDERED: cefTRIAXone 1 GM IVPB PREMIX 50 ML IV ONE (23:00)
[2022-11-08] MEDS ORDERED: ACET325T PO (23:11)
[2022-11-08] MEDS ORDERED: APIX2.5T PO (23:11)
[2022-11-08] MEDS ORDERED: ASCO500T10 PO (23:11)
[2022-11-08] MEDS ORDERED: ZIN220 PO (23:11)
--- NOTE | 2022-11-08 23:12 | NUR ---
Medication reconciliation completed with information provided by THERESE OSORIO. Any prior medication reconciliation on file was reviewed and corrected.
[2022-11-08] MEDS ORDERED: ACETAMINOPHEN 325 MG TABLET PO PRN (23:30)
--- NOTE | 2022-11-08 23:46 | NUR ---
Admit bed requested Patient will be admitted to care of . Admitted to ICU unit. Diagnosis SEVERE ANEMIA Inpatient (Yes or No) Y Observation (Yes or No) N Orientation concerns or request close to nursing station (Yes or No) Y Covid Status N On vent or bipap N Isolation requirements N Needs a sitter N From Home (Yes or if No enter name of facility) Y SORRENTO CASA Requires Dialysis (Yes or No) Med Rec Completed (Yes of No) Y
[2022-11-09] VITALS (26 sets, daily range): BP systolic 94–130
--- NOTE | 2022-11-09 01:23 | NUR ---
CONSULTATION PAGED/CALLED Reason for Consultation: Kidney Failure Person Who was Notified: Kevin Consulting Physician: Dr Linda Mental Health Tech Specialty: Nephrology Ordering Physician: Dr Blackburn
--- NOTE | 2022-11-09 08:00 | NUR ---
awake alert with confusion. 3rd unit packed cells given no reaction noted. levophed 4mg /250 d5w 0.05 mcg/kg/min daughted at bedside. am care done. with minimal stool noted. guadalupe catheter with bloody urine. apixaban hold. daughter wants guadalupe irrigation order will notify doctor for order.repositioned.
[2022-11-09] MEDS ORDERED: MILK OF MAGNESIA 30 ML UDC PO PRN (08:30)
[2022-11-09] MEDS ORDERED: BISACODYL 10 MG/SUPPOSITORY RC PRN (08:30)
[2022-11-09] MEDS ORDERED: LevALBUTEROL HCL 1.25 MG/0.5 ML *CONC.* VIAL.NEB (XOPENEX CONC.) INH PRN (08:45)
--- NOTE | 2022-11-09 09:25 | NUR ---
SPOKE WITH JIMENEZ FROM DR. CAMERON'S EXCHANGE FOR NEW CONSULT ORDERED BY DR. GUIDO REGARDING ANEMIA.
--- NOTE | 2022-11-09 09:29 | NUR ---
SPOKE WITH GILMER FROM DR. WARNER'S EXCHANGE FOR NEW CONSULT ORDERED BY DR. GUIDO REGARDING UROSEPSIS.
[2022-11-09] MEDS ORDERED: APIXABAN 2.5 MG TABLET PO ONE (09:30)
[2022-11-09] MEDS ORDERED: ASCORBIC ACID 500 MG TABLET PO ONE (09:30)
[2022-11-09] MEDS ORDERED: MULTIVITAMINS TAB 1 TABLET PO ONE (09:30)
[2022-11-09] MEDS ORDERED: FAMOTIDINE 20 MG TABLET PO ONE (09:30)
[2022-11-09] MEDS ORDERED: NOREPINEPHRINE BITARTRATE 4 MG in NS 246 ML IV PRN (09:45)
[2022-11-09] MEDS ORDERED: ALLOPURINOL 300 MG TABLET (ZYLOPRIM) PO ONE (09:45)
[2022-11-09 10:00] LABS: BASOPHILS # (AUTO) 0.1 K/uL (0.0-0.2); BASOPHILS % (AUTO) 0.7 % (0.0-2.0); EOSINOPHILS % (AUTO) 0.4 % (0.0-4.0); HEMATOCRIT 29.8 % (36-48); HEMOGLOBIN 9.7 g/dL (12.0-16.0); LYMPHOCYTES # (AUTO) 1.6 K/uL (1.0-5.5); LYMPHOCYTES % (AUTO) 15.4 % (20.5-51.5); MEAN CORPUSCULAR HEMOGLOBIN 29 pg (27-31); MEAN CORPUSCULAR HGB CONC 33 % (32-36); MEAN CORPUSCULAR VOLUME 91 fL (79.0-98.0); MONOCYTES # (AUTO) 0.8 K/uL (0.0-1.0); MONOCYTES % (AUTO) 7.8 % (1.7-9.3); NEUTROPHILS # (AUTO) 7.7 K/uL (1.8-7.7); NEUTROPHILS % (AUTO) 75.7 % (40.0-70.0); PLATELET COUNT (AUTO) 105 K/uL (130-430); RED BLOOD CELL COUNT(AUTO) 3.29 MIL/uL (4.2-6.2); RED CELL DISTRIBUTION WIDTH 19.2 % (9.0-15.0); WHITE BLOOD COUNT (AUTO) 10.2 K/uL (4.8-10.8)
[2022-11-09 10:10] LABS: ALANINE AMINOTRANSFERASE 25 U/L (12-78); ALBUMIN 1.5 g/dL (3.4-4.8); ANION GAP 15 (5-15); ASPARTATE AMINOTRANSFERASE 42 U/L (10-37); CALCIUM 8.8 mg/dL (8.4-11.0); CHLORIDE 100 mmol/L (98-107); CREATININE 3.07 mg/dL (0.55-1.30); GLUCOSE 93 mg/dL (70-99); TOTAL BILIRUBIN 2.6 mg/dL (0.0-1.0); UREA NITROGEN, BLOOD 78 mg/dL (8-21)
[2022-11-09] MEDS ORDERED: ALLOPURINOL 100 MG TABLET (ZYLOPRIM) PO ONE (10:30)
[2022-11-09] MEDS: FAMOTIDINE 20 MG TABLET PO SCH (11:00)
--- NOTE | 2022-11-09 12:00 | NUR ---
asleep awaken took apple sauce able to swallow. hob elevated
[2022-11-09] MEDS: NACL 0.9% 1,000 ML IV SCH ×2 (12:23→21:35)
[2022-11-09] MEDS ORDERED: PHENTOLAMINE MESYLATE 5 MG VIAL INJ ONE (15:45)
--- NOTE | 2022-11-09 15:58 | NUR ---
SPOKE WITH LARRY FROM DR. TELLEZ'S EXCHANGE FOR NEW CONSULT ORDERED BY DR. ROJAS REGARDING HEMATURIA CAUSED BY KIDNEY STONES.
[2022-11-09] MEDS ORDERED: COMMUNICATION ORDER XX ONE (16:00)
--- NOTE | 2022-11-09 16:00 | NUR ---
noted iv site with slight swelling and small area discoloration.on levophed site. 22g angiocath inserted to rt hand .site-ok daughter here.show the iv site and asked question.regitine extravasation injected to site 5mg diluted to 10ml ns.tylenol 650 mg po given for pain.consent for placement of picc line signed by daughter.guadalupe irrigated with 120ml saline and urine get clear.pm care done.ate mech soft cont. on levophed with same rate ns 100ml/hr.cont. to lt. arm. daughter at bedside.
[2022-11-09 17:20] LABS: INR 1.2 (0.8-1.2)
--- NOTE | 2022-11-09 18:30 | NUR ---
daughter at bedside. no distress noted.cont. on levophed 0.05mcg/kg/min.endorsed
[2022-11-09] MEDS ORDERED: cefTRIAXone 1 GM IVPB PREMIX 50 ML IV SCH (19:00)
--- NOTE | 2022-11-09 19:30 | NUR ---
RECEIVED SLEEPING , AROUSABLE, COMMUNICATES VERBALLY, DAUGHTER IN THE ROOM. PATIENT IS ON ROOM AIR, SAT 96%. WELDER TOOL AND DIE IS SHOWING AFIB, BLOOD PRESSURE ON HIGH 90'S, DENIES CHEST PAIN. IVF OF NS IS INFUSING AT 100 ML/HR VIA LEFT ARM. LEVOPHED IS INFUSING AT 0.05 MCG/KG/MIN ON THR RIGHT HAND. FOR PICC LINE INSERTION TONIGHT, CONSENT SIGNED. ABDOMEN IS SOFT AND NON-DISTENDED. SANTILLAN INTACT AND PATENT, DRAINING WELL. AFEBRILE.
[2022-11-09] MEDS ORDERED: APIXABAN 2.5 MG TABLET PO SCH (21:00)
[2022-11-09 22:26] LABS: BILIRUBIN,URINE NEGATIVE (NEGATIVE); BLOOD, URINE 3+ (NEGATIVE); CLARITY/URINE SL CLOUDY (CLEAR); COLOR,URINE RED (YELLOW); GLUCOSE,URINE NEGATIVE (NEGATIVE); KETONES,URINE NEGATIVE (NEGATIVE); NITRITE, URINE NEGATIVE (NEGATIVE); PROTEIN URINE 2+ (NEGATIVE); UROBILINOGEN,URINE 0.2 (0.2-1.0)
[2022-11-09 22:29] LABS: LEUKOCYTE ESTERASE ,URINE 1+ (NEGATIVE)
[2022-11-09 22:30] LABS: BACTERIA,URINE FEW /HPF (None Seen); CALCIUM OXALATE CRYSTALS,UR 0-10 /HPF (None Seen); MUCUS,URINE None Seen /LPF (None Seen); RBC,URINE >100 /HPF (0-3)
--- NOTE | 2022-11-09 22:43 | NUR ---
PICC LINE NURSE IS HERE, INSERTED THE PICC LINE. DAUGHTER NOTIFIED. CHEST XRAY ORDERED TO CONFIRM PICC PLACEMENT.
[2022-11-10] VITALS (24 sets, daily range): BP systolic 92–129
[2022-11-10] MEDS: NACL 0.9% 1,000 ML IV SCH ×3 (05:28→15:30)
[2022-11-10 05:34] LABS: BASOPHILS % (AUTO) 0.3 % (0.0-2.0); EOSINOPHILS % (AUTO) 0.2 % (0.0-4.0); HEMATOCRIT 29.5 % (36-48); HEMOGLOBIN 9.8 g/dL (12.0-16.0); LYMPHOCYTES # (AUTO) 2.7 K/uL (1.0-5.5); LYMPHOCYTES % (AUTO) 30.6 % (20.5-51.5); MEAN CORPUSCULAR HEMOGLOBIN 30 pg (27-31); MEAN CORPUSCULAR HGB CONC 33 % (32-36); MEAN CORPUSCULAR VOLUME 90 fL (79.0-98.0); MONOCYTES # (AUTO) 0.4 K/uL (0.0-1.0); MONOCYTES % (AUTO) 4.7 % (1.7-9.3); NEUTROPHILS # (AUTO) 5.7 K/uL (1.8-7.7); NEUTROPHILS % (AUTO) 64.2 % (40.0-70.0); PLATELET COUNT (AUTO) 94 K/uL (130-430); RED BLOOD CELL COUNT(AUTO) 3.29 MIL/uL (4.2-6.2); RED CELL DISTRIBUTION WIDTH 19.5 % (9.0-15.0); RETICULOCYTE COUNT 1.1 % (0.5-1.5); WHITE BLOOD COUNT (AUTO) 8.9 K/uL (4.8-10.8)
[2022-11-10 05:51] LABS: TOTAL IRON BIND. CAPACITY 132 ug/dL (250-450)
[2022-11-10 05:54] LABS: ALANINE AMINOTRANSFERASE 24 U/L (12-78); ALBUMIN 1.5 g/dL (3.4-4.8); ANION GAP 17 (5-15); ASPARTATE AMINOTRANSFERASE 32 U/L (10-37); CALCIUM 8.7 mg/dL (8.4-11.0); CHLORIDE 105 mmol/L (98-107); CREATININE 2.99 mg/dL (0.55-1.30); GLUCOSE 84 mg/dL (70-99); TOTAL BILIRUBIN 1.8 mg/dL (0.0-1.0); UREA NITROGEN, BLOOD 81 mg/dL (8-21)
--- NOTE | 2022-11-10 07:25 | NUR ---
RECEIVED PATIENT FROM NIGHT ARACELIS DANIELS. PT. ON ROOM AIR, SLEEPING, ATRIAL FIBRILLATION WITH NOTED PVC'S, OCASSIONALLY. LEVOPHED AT 0.03 MCG. NS AT 100 MLS/HR. ELIQUIS WAS HELD DUE TO HEMATURIA. WITH SANTILLAN CATHETER. URINE TEA-COLORED. SANTILLAN CATHETER FOR FLUSHING. SANTILLAN CATHER FLUSHING EVERY 3 HOURS. PICC LINE. ON MECHANICAL SOFT DIET.
[2022-11-10] MEDS: FAMOTIDINE 20 MG TABLET PO SCH (09:25)
[2022-11-10] MEDS: MULTIVITAMINS TAB 1 TABLET PO SCH (09:27)
[2022-11-10] MEDS: ASCORBIC ACID 500 MG TABLET PO SCH (09:28)
[2022-11-10] MEDS: ALLOPURINOL 100 MG TABLET (ZYLOPRIM) PO SCH (09:28)
--- NOTE | 2022-11-10 10:30 | NUR ---
DR. LIZZY TODD (INFECTIOUS DISEASE) CAME AND NOTED ABOUT THE URINE HAS OLD TEA-COLORED, NOW CLEAR. NOTED BIG TOE TIP HAS SMALL UNSTAGEABLE, LEFT HEEL HAS SMALL DTI. DAUGHTER SID IS AT THE BEDSIDE SPOKE TO MD & INFORMED THAT THE PT. HAS HISTORY OF RIGHT KNEE SURGERY, NEPHRECTOMY, LEFT BIG TOE AMPUTATION, FEMORAL BYPASS. PT.HAS HARD COMPREHENDING, PT. IS DISORIENTED TO PLACE, TIME, DATE, CANNOT EVEN TOLD YEAR WHEN ASKED EARLIER DURING ASSESSMENT. DAUGHTER CLAIMS THAT THE PATIENT WAS SHARP BEFORE THIS ADMISSION.
[2022-11-10] MEDS ORDERED: CEFEPIME 1 GM in D5W 50 ML IV SCH (11:30)
[2022-11-10] MEDS: CEFEPIME 1 GM in D5W 50 ML IV SCH (12:45)
--- NOTE | 2022-11-10 15:11 | NUR ---
CONSULTATION PAGED/CALLED Reason for Consultation: POSIBLE ENDOCARDITIS Person Who was Notified: FABIO Consulting Physician: SHIKHA WHYTE Tobacco Educator Specialty: Ordering Physician: HEMAL GUIDO
[2022-11-10] MEDS: LIDOCAINE PATCH 5% 1 EA TP SCH (15:54)
--- NOTE | 2022-11-10 16:00 | NUR ---
SKIN CONDITIONS PHOTO TAKEN RIGHT BIG TOE UNSTAGEABLE. RIGHT HEEL DTI. 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 SACRUM EXCORIATION. LIDOCAINE PATCH ORDERED FOR PAIN ON RIGHT KNEE 12 HRS. ON AND 12 HOURS OFF.
--- NOTE | 2022-11-10 19:15 | NUR ---
PT. HANDED OVER TO NIGHT ARACELIS THOMPSON. PT. IS A FEEDER, POOR INTAKE, NEEDS MORE ENCOURAGEMENT. PT. CONFUSED, CAN CONVERSE HARD OF HEARING. LEVOPHED AT 0.03 MCG/KG/MINUTE. SANTILLAN CATHETER FOR FLUSHING Q 3 HRS. BUT CLEARS UP EASILY WHEN FLUSHED. THEN GETS TINGED OF PINK INTERMITTENTLY. 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 Addendum: 11/10/22 at 6 by Simon Jo RN RN FOR 2D ECHO PER DR. ABREU
[2022-11-10] MEDS: MEGESTROL ACETATE 400 MG/10 ML UDC PO SCH (23:04)
[2022-11-11] VITALS (24 sets, daily range): BP systolic 107–133
[2022-11-11] MEDS: NACL 0.9% 1,000 ML IV SCH ×3 (00:10→20:01)
[2022-11-11 05:36] LABS: BASOPHILS % (AUTO) 0.6 % (0.0-2.0); EOSINOPHILS % (AUTO) 0.3 % (0.0-4.0); HEMATOCRIT 28.5 % (36-48); HEMOGLOBIN 9.4 g/dL (12.0-16.0); LYMPHOCYTES # (AUTO) 1.2 K/uL (1.0-5.5); LYMPHOCYTES % (AUTO) 20.2 % (20.5-51.5); MEAN CORPUSCULAR HEMOGLOBIN 29 pg (27-31); MEAN CORPUSCULAR HGB CONC 33 % (32-36); MEAN CORPUSCULAR VOLUME 90 fL (79.0-98.0); MONOCYTES # (AUTO) 0.3 K/uL (0.0-1.0); MONOCYTES % (AUTO) 4.5 % (1.7-9.3); NEUTROPHILS # (AUTO) 4.3 K/uL (1.8-7.7); NEUTROPHILS % (AUTO) 74.4 % (40.0-70.0); PLATELET COUNT (AUTO) 82 K/uL (130-430); RED BLOOD CELL COUNT(AUTO) 3.18 MIL/uL (4.2-6.2); RED CELL DISTRIBUTION WIDTH 20.2 % (9.0-15.0); WHITE BLOOD COUNT (AUTO) 5.8 K/uL (4.8-10.8)
[2022-11-11 05:52] LABS: ALANINE AMINOTRANSFERASE 22 U/L (12-78); ALBUMIN 1.4 g/dL (3.4-4.8); ANION GAP 18 (5-15); ASPARTATE AMINOTRANSFERASE 29 U/L (10-37); CALCIUM 8.6 mg/dL (8.4-11.0); CHLORIDE 108 mmol/L (98-107); CREATININE 2.89 mg/dL (0.55-1.30); GLUCOSE 149 mg/dL (70-99); TOTAL BILIRUBIN 1.8 mg/dL (0.0-1.0); UREA NITROGEN, BLOOD 79 mg/dL (8-21)
--- NOTE | 2022-11-11 08:00 | NUR ---
NERY ALBERT IS IN CHARGE OF THIS ICU PATIENT. PATIENT IS AWAKE, ALERT, AND ORIENTED TO SELF. REORIENTED TO TIME AND PLACE. PATIENT COOPERATIVE. VS STABLE OF LEVOPHED DRIP. TITRATED LEOPHED DRIP FROM 0.03 TO 0.01 MCKIMN/ SWITCHED SANTILLAN CATHER BAG TO URONOMETER BAG USING STERILE TECHNIQUE. AWAIT PATIENT TRAY TO FEED PATIENT BUT PATIENT VERY DROWSY AT THIS TIME. SO WILL ATTEMPT TO WAKE PATIENT UP BEFORE EATING. PATINET VS ARE STABLE WILL CONTINUE TO TITRATE LEVOPHED. PATIENT URINE OUTPUT IS REGULO WITH SOME TRACE BLOOD BUT PATENT SO NO NEED TO FLUSH. BLADDER SCAN DONE AND ONLY SCANT URINE PRESENT IN SANTILLAN. REDEPOSITING EVERY 2 HOURS. PATIENT TOLERATED WELL. FAMILY AT BEDSIDE. APPRECIATIVE OF OUR CARE WITH STUDENT NURSE, ELEANOR. KODY CESAR SN
[2022-11-11] MEDS: FAMOTIDINE 20 MG TABLET PO SCH (09:46)
[2022-11-11] MEDS: MULTIVITAMINS TAB 1 TABLET PO SCH (09:47)
[2022-11-11] MEDS: ASCORBIC ACID 500 MG TABLET PO SCH (09:47)
[2022-11-11] MEDS: MEGESTROL ACETATE 400 MG/10 ML UDC PO SCH ×2 (09:47→21:34)
[2022-11-11] MEDS: APIXABAN 2.5 MG TABLET PO SCH ×2 (09:47→21:34)
[2022-11-11] MEDS: ALLOPURINOL 100 MG TABLET (ZYLOPRIM) PO SCH (09:47)
--- NOTE | 2022-11-11 10:17 | NUR ---
Dietitian Recommendations * Please update diet order to reflect current diet, renal standard, mechanical soft. * Ordered José BID (provides 180 kcal and 5 g PRO) GS, MPH, RD Please refer to RD Assessment for further details. Thanks! Addendum: 11/11/22 at [address]на [address] Amended: Links added.
[2022-11-11] MEDS: CEFEPIME 1 GM in D5W 50 ML IV SCH (12:37)
[2022-11-11] MEDS: SODIUM BICARBONATE 8.4% JECT 150 MEQ in D5W 1,000 ML IV SCH (15:13)
[2022-11-11] MEDS: LIDOCAINE PATCH 5% 1 EA TP SCH (16:34)
[2022-11-12] VITALS (20 sets, daily range): BP systolic 114–135
[2022-11-12 05:40] LABS: ALANINE AMINOTRANSFERASE 18 U/L (12-78); ALBUMIN 1.4 g/dL (3.4-4.8); ANION GAP 18 (5-15); ASPARTATE AMINOTRANSFERASE 44 U/L (10-37); CALCIUM 8.7 mg/dL (8.4-11.0); CHLORIDE 108 mmol/L (98-107); CHOLESTEROL 134 mg/dL (<200); CREATININE 2.82 mg/dL (0.55-1.30); GLUCOSE 135 mg/dL (70-99); HDL CHOLESTEROL 17 mg/dL (>55); THYROID STIMULATING HORMONE 1.94 uIu/mL (0.34-4.82); TOTAL BILIRUBIN 1.9 mg/dL (0.0-1.0); TRIGLYCERIDES 146 mg/dL (30-150); UREA NITROGEN, BLOOD 83 mg/dL (8-21)
--- NOTE | 2022-11-12 05:45 | NUR ---
CRITICAL LAB CALLED K-2.[address] GAITAN WITH ORDERS MADE SEE CPOE
[2022-11-12] MEDS ORDERED: POTASSIUM CHLORIDE 20 MEQ TAB.PRT.SR PO ONE ×2 (06:15→12:00)
[2022-11-12 07:06] LABS: FOLATE (FOLIC ACID) 12.2 ng/mL (>3.0)
[2022-11-12] MEDS: SODIUM BICARBONATE 8.4% JECT 150 MEQ in D5W 1,000 ML IV SCH (07:27)
[2022-11-12] MEDS: ALLOPURINOL 100 MG TABLET (ZYLOPRIM) PO SCH (10:06)
[2022-11-12] MEDS: FAMOTIDINE 20 MG TABLET PO SCH (10:09)
[2022-11-12] MEDS: ASCORBIC ACID 500 MG TABLET PO SCH (10:09)
[2022-11-12] MEDS: MULTIVITAMINS TAB 1 TABLET PO SCH (10:10)
[2022-11-12] MEDS: MEGESTROL ACETATE 400 MG/10 ML UDC PO SCH ×2 (10:10→22:11)
[2022-11-12] MEDS: APIXABAN 2.5 MG TABLET PO SCH ×2 (10:11→22:13)
[2022-11-12] MEDS ORDERED: POTASSIUM CHLORIDE 20 MEQ/PKT PACKET PO ONE ×2 (12:00→15:00)
[2022-11-12] MEDS: LIDOCAINE PATCH 5% 1 EA TP SCH (15:38)
--- NOTE | 2022-11-12 20:00 | NUR ---
recieved pt from ICU. pt downgraded emily GRULLON, pt to be cleared for discharge/transfer pending labs. Pt is aox3-4. , bed bound. guadalupe and michelle picc. lung diminished at bases. bowel sounds present. pt able to articulate needs, VSS 120/64 96% RA 97 HR temp 98.2. pt transferred with belongins and medications to be given. will monitor, and note of any changes.
[2022-11-12] MEDS: AMPICILLIN SODIUM/SULBACTAM NA 1.5 GM in NS 50 ML IV SCH (22:12)
[2022-11-13 00:53] VITALS: BP_SYST 137
[2022-11-13] MEDS: SODIUM BICARBONATE 8.4% JECT 150 MEQ in D5W 1,000 ML IV SCH (04:57)
[2022-11-13 05:36] LABS: BASOPHILS % (AUTO) 0.4 % (0.0-2.0); EOSINOPHILS % (AUTO) 0.4 % (0.0-4.0); HEMATOCRIT 27.9 % (36-48); HEMOGLOBIN 9.1 g/dL (12.0-16.0); LYMPHOCYTES # (AUTO) 1.1 K/uL (1.0-5.5); MEAN CORPUSCULAR HEMOGLOBIN 30 pg (27-31); MEAN CORPUSCULAR HGB CONC 33 % (32-36); MEAN CORPUSCULAR VOLUME 90 fL (79.0-98.0); MONOCYTES # (AUTO) 0.2 K/uL (0.0-1.0); MONOCYTES % (AUTO) 4.4 % (1.7-9.3); NEUTROPHILS % (AUTO) 74.8 % (40.0-70.0); PLATELET COUNT (AUTO) 55 K/uL (130-430); RED CELL DISTRIBUTION WIDTH 19.6 % (9.0-15.0); WHITE BLOOD COUNT (AUTO) 5.3 K/uL (4.8-10.8)
[2022-11-13 06:51] LABS: ALANINE AMINOTRANSFERASE 19 U/L (12-78); ALBUMIN 1.4 g/dL (3.4-4.8); ANION GAP 13 (5-15); ASPARTATE AMINOTRANSFERASE 23 U/L (10-37); CALCIUM 9.1 mg/dL (8.4-11.0); CHLORIDE 110 mmol/L (98-107); GLUCOSE 106 mg/dL (70-99); TOTAL BILIRUBIN 1.8 mg/dL (0.0-1.0); UREA NITROGEN, BLOOD 74 mg/dL (8-21)
[2022-11-13 07:53] VITALS: BP_SYST 146
--- NOTE | 2022-11-13 08:00 | NUR ---
Start of shift Pt assisted in sitting up in bed to eat her breakfast. Tele unit attached and intact. GERRI PICC intact and patent. No SOB/resp distress or chest pain/discomfort was noted. Nova catheter intact and draining reddish clear drainage at this time. Pt is assisted in eating her breakfast by SUPERVISOR [employer]. Call light within reach. Bed alarm on and bed in low position.
[2022-11-13] MEDS ORDERED: POTASSIUM CHLORIDE 20 MEQ TAB.PRT.SR PO ONE (08:15)
[2022-11-13] MEDS: MEGESTROL ACETATE 400 MG/10 ML UDC PO SCH ×2 (08:33→21:21)
[2022-11-13] MEDS: MULTIVITAMINS TAB 1 TABLET PO SCH (08:34)
[2022-11-13] MEDS: FAMOTIDINE 20 MG TABLET PO SCH (08:34)
[2022-11-13] MEDS: ASCORBIC ACID 500 MG TABLET PO SCH (08:34)
[2022-11-13] MEDS: ALLOPURINOL 100 MG TABLET (ZYLOPRIM) PO SCH (08:34)
[2022-11-13] MEDS: AMPICILLIN SODIUM/SULBACTAM NA 1.5 GM in NS 50 ML IV SCH ×2 (08:34→21:21)
[2022-11-13] MEDS: APIXABAN 2.5 MG TABLET PO SCH ×2 (08:35→22:01)
[2022-11-13 11:38] VITALS: BP_SYST 126
[2022-11-13] MEDS: LIDOCAINE PATCH 5% 1 EA TP SCH (14:37)
[2022-11-13 18:07] VITALS: BP_SYST 137
--- NOTE | 2022-11-13 18:15 | NUR ---
End of shift Pt assisted in sitting up in her air mattress to eat her dinner assisted by her daughter. Pt was checked on q1' and PRN for needs and care. Pt was maintained with safety precautions. Pt's GERRI PICC intact and patent infusing IVF's well. Tele unit attached and intact all shift. Pt's Nova catheter intact and draining. Sacral dressing was changed and cleaned. Call light within reach. No needs noted at this time. Call light within reach. Bed in low position and bed alarm on. Side rails raised.
[2022-11-13 19:30] VITALS: BP_SYST 147
--- NOTE | 2022-11-13 19:30 | NUR ---
PM ASSESSMENT; -Patient is a/o x1, lethargic noted. NO s/s any pain,pain,sob,or any acute distress noted. Nova cath w/ gravity drains with tinged pink urine output noted. GERRI PICC line with good blood returns noted. IVF D5W with NA Bicarbonate @ 60ml/hr. Unable to discuss poc d/t cognitive limitation and family is available this time. Fall precaution in place. All safety measures in place, side rails x2, Call light within reach. Cont to monitor pt.
--- NOTE | 2022-11-14 | NUR ---
ROUNDS; -Pt is asleep. No s/s any acute distress noted. Fall precaution in place. All safety measures in place, side rails x3, Call light within reach. Cont to monitor pt.
[2022-11-14] MEDS: SODIUM BICARBONATE 8.4% JECT 150 MEQ in D5W 1,000 ML IV SCH ×2 (00:34→21:12)
[2022-11-14 00:57] VITALS: BP_SYST 125
--- NOTE | 2022-11-14 04:00 | NUR ---
ROUNDS; -Pt is resting in bed comfortably. Pt seem more awakes. Provided perineal care and drsg changed of coccyx area per protocol. Pt denies any pain,sob,or any acute distress. Pt drank water from own water pitcher. Fall precaution in place. All safety measures in place, side rails x3, Call light within reach. Cont to monitor pt.
[2022-11-14 06:11] LABS: BASOPHILS % (AUTO) 0.2 % (0.0-2.0); EOSINOPHILS % (AUTO) 0.7 % (0.0-4.0); HEMATOCRIT 26.7 % (36-48); HEMOGLOBIN 8.9 g/dL (12.0-16.0); LYMPHOCYTES # (AUTO) 1.1 K/uL (1.0-5.5); LYMPHOCYTES % (AUTO) 17.2 % (20.5-51.5); MEAN CORPUSCULAR HEMOGLOBIN 30 pg (27-31); MEAN CORPUSCULAR HGB CONC 33 % (32-36); MEAN CORPUSCULAR VOLUME 91 fL (79.0-98.0); MONOCYTES # (AUTO) 0.2 K/uL (0.0-1.0); MONOCYTES % (AUTO) 3.1 % (1.7-9.3); NEUTROPHILS # (AUTO) 4.8 K/uL (1.8-7.7); NEUTROPHILS % (AUTO) 78.8 % (40.0-70.0); PLATELET COUNT (AUTO) 53 K/uL (130-430); RED BLOOD CELL COUNT(AUTO) 2.94 MIL/uL (4.2-6.2); RED CELL DISTRIBUTION WIDTH 20.2 % (9.0-15.0); WHITE BLOOD COUNT (AUTO) 6.1 K/uL (4.8-10.8)
--- NOTE | 2022-11-14 06:41 | NUR ---
CLOSING NOTES; Delfina -dtr called & updated poc and mother's condition. -Pt is resting in bed comfortably. NO s/s any pain,pain,sob,or any acute distress noted. Nova cath w/ gravity drains with tinged pink urine output noted. GERRI PICC line with good blood returns noted. IVF D5W with NA Bicarbonate @ 60ml/hr. Fall precaution in place. All safety measures in place, side rails x3, Call light within reach. Pt's condition stable. Will endorse to next nurse to continuity of care and to ask MD to order physical therapy evaluation upon dtr's request.
[2022-11-14 06:44] LABS: ALANINE AMINOTRANSFERASE 21 U/L (12-78); ALBUMIN 1.4 g/dL (3.4-4.8); ANION GAP 12 (5-15); ASPARTATE AMINOTRANSFERASE 23 U/L (10-37); CALCIUM 8.8 mg/dL (8.4-11.0); CHLORIDE 109 mmol/L (98-107); CREATININE 2.47 mg/dL (0.55-1.30); GLUCOSE 121 mg/dL (70-99); TOTAL BILIRUBIN 1.5 mg/dL (0.0-1.0); UREA NITROGEN, BLOOD 79 mg/dL (8-21)
[2022-11-14 08:16] VITALS: BP_SYST 125
--- NOTE | 2022-11-14 08:16 | NUR ---
INITIAL ROUNDS OF SHIFT Received pt AAOx2, no s/s resp distress, no c/o pain or discomfort. Pt hard of hearing-has eraser board at bedside for communication. IVF infusing well to GERRI PICC line at ordered rate with no s/s infiltration to site-dressing clean, dry and intact. Nova catheter draining to gravity with keshav colored urine. Pt on air mattress. Pt repositioned with pillow support and heels off-loaded for skin care and comfort. Noted dressing to bilat heels, noted right big toe with dry scab at top of toe, dressing to coccyx area clean, dry and intact. Side rails up x3, bed alarm on and room close to nursing station for safety. Call light within reach.
[2022-11-14] MEDS: AMPICILLIN SODIUM/SULBACTAM NA 1.5 GM in NS 50 ML IV SCH ×2 (09:57→17:51)
[2022-11-14] MEDS: ASCORBIC ACID 500 MG TABLET PO SCH (09:58)
[2022-11-14] MEDS: MULTIVITAMINS TAB 1 TABLET PO SCH (09:58)
[2022-11-14] MEDS: FAMOTIDINE 20 MG TABLET PO SCH (09:58)
[2022-11-14] MEDS: ALLOPURINOL 100 MG TABLET (ZYLOPRIM) PO SCH (09:58)
[2022-11-14] MEDS: MEGESTROL ACETATE 400 MG/10 ML UDC PO SCH ×2 (09:58→21:11)
[2022-11-14] MEDS: APIXABAN 2.5 MG TABLET PO SCH ×2 (10:01→21:11)
--- NOTE | 2022-11-14 12:01 | NUR ---
ROUNDS Pt resting quietly in bed with no s/s resp distress, no c/o pain or discomfort. Pt's Nova catheter with red-tinged urine, flushed now slightly pink. Pt repositioned with pillow support and heels off-loaded for skin care and comfort. All precautions remain in place. Call light within reach.
[2022-11-14 13:08] VITALS: BP_SYST 123
--- NOTE | 2022-11-14 14:30 | NUR ---
WOUND EVALUATION: Late note for 11/14/2022 at 1430 secondary to patient care. Wound Consult received from Dr. Blackburn. Thank you, Dr. Blackburn, for the consult. Patient received in a Phylicia Bed with an IsoFlex VLADIMIR mattress with low air-loss therapy, awake, alert, oriented x 2. Patient is unable to turn in bed independently. Martir Score is a 14. Past Medical History: Coronary Artery Disease, Atrial Fibrillation, Congestive Heart Failure, Lymphoma, Dementia, Anemia, chronic kidney disease, Hyperuricemia, recurrent UTI's, Gout, Overactive Bladder. Recent Labs: 6.1, RBC 2.94, hemoglobin 8.9, hematocrit 26.7, ESR 39, chloride 109, BUN 79, creatinine 2.47, glucose 121, alkaline phosphatase 147.4, serum total protein 3.8, albumin 1.4. Microbiology: Urine culture results positive for Klebsiella pneumoniae, blood culture results positive for strep agalactiae group B #2, stool OB results negative. MRSA screen results negative. Skin fungal/mold culture results in progress. Blood culture results x2 in progress. Intrinsic factors that delay wound healing: Coronary Artery Disease, Atrial Fibrillation, Congestive Heart Failure, Lymphoma, severe protein calorie malnutrition, severe hypoalbuminemia, hyperglycemia. Extrinsic factors that delay wound healing: Decreased mobility. Wound Assessment: 1. Right Buttocks/Sacral area: Stage III pressure ulcer, present on admission. Wound bed has 95% red tissue, 5% dark discolored tissue. Wound measures 1.5 cm x 1.3 cm. Recommend: Cleanse site with normal saline. Apply moisture barrier cream to periwound. Apply Venelex ointment to wound bed. Cover with sacral foam dressing. Perform site care daily, and as needed for dressing soiling or dislodgment. 2. Left Buttock near Ischium: Dry, flaky skin, present on admission. No odor, no drainage. Recommend: Cleanse site with mild soap and water. Gently pat dry. Apply Hydraguard barrier cream to site. Cover with foam dressing. Perform site care daily, and as needed for dressing soiling or dislodgement. 3. Right Great Toe, distal aspect: Chronic ischemic wound, present on admission. Wound bed has 100% black eschar. No odor, no drainage. Periwound intact. Dry, stable. Wound measures 0.3 cm x 0.5 cm. Recommend: [place] eschar site with Betadine. Perform site care daily. 4. Right Posterior Heel: Small area of white discolored skin. No odor, no drainage. Skin is intact. Recommend: Cover site with foam dressing for protection. Elevate, offload and float bilateral heels with 1 pillow lengthwise under each extremity at all times. Do not allow site to touch bed or other surfaces at any time. Also recommend: Encourage and assist patient with repositioning side to side only every 2 hours with pillow support and off-load pressure areas with pillows for pressure re-distribution. Offload, elevate and float bilateral heels with 1 pillow lengthwise under each extremity at all times. Perform skin care and monitor skin integrity Q shift. Use moisture barrier cream on buttocks and other moisture susceptible areas QID and as needed for soiling. Place patient on a P500 low air-loss mattress.
--- NOTE | 2022-11-14 14:49 | NUR ---
Referral sent to [facility] for placement
[2022-11-14] MEDS: LIDOCAINE PATCH 5% 1 EA TP SCH (16:50)
--- NOTE | 2022-11-14 17:44 | NUR ---
Patient to transfer to [facility] Room 126-Number for report [phone]. Ambulance transport by [facility] at 8:30PM [phone]
[2022-11-14 17:45] VITALS: BP_SYST 134
--- NOTE | 2022-11-14 17:46 | NUR ---
Patient's daughter agreed to the transport
--- NOTE | 2022-11-14 18:45 | NUR ---
DISCHARGE ISSUES Pt's daughter Delfina called from [facility] and stated that the facility will not accept patient until tomorrow. Spoke with Ava LUJAN the Admitting nurse who stated she text Ori in Case management and he stated the patient is not coming until tomorrow and that they need authorization from the insurance. Theresa day shift Charge nurse informed and ambulance put on will call for tomorrow. DR. Blackburn called and informed and stated to discharge patient once the patient has authorization.
--- NOTE | 2022-11-14 19:06 | NUR ---
S/W NORA FROM [facility] PT IS NOW ON WILL CALL
--- NOTE | 2022-11-14 19:35 | NUR ---
CLOSING NOTE Pt resting quietly in bed with no s/s resp distress, no c/o pain or discomfort. IVF infusing well at ordered rate to GERRI with no s/s infiltration to site. Nova continues to drain red tinged urine. Aspiration, skin and safety precautions remain in place. Endorsed care to geodetic engineer nurse and informed her of discharge issues. Call light within reach.
--- NOTE | 2022-11-14 20:00 | NUR ---
Patient awake answer simple question oriented to her name , birthday, denies any pain ,discussed plan of care medication hygiene, repositioned by staff every 2 hours with pillow support.
[2022-11-14 20:07] VITALS: BP_SYST 134
[2022-11-15 00:27] VITALS: BP_SYST 131
--- NOTE | 2022-11-15 05:00 | NUR ---
Skin/wound care Perineal care given , sacral wound/denuded , cleanse with saline pat/dry , periwound skin cream barrier applied with alginate gauze covered with foam dressing, repositioned , photo taken for documentation prior to discharge
[2022-11-15 05:15] LABS: BASOPHILS % (AUTO) 0.5 % (0.0-2.0); EOSINOPHILS % (AUTO) 0.5 % (0.0-4.0); HEMATOCRIT 28.7 % (36-48); HEMOGLOBIN 9.4 g/dL (12.0-16.0); LYMPHOCYTES # (AUTO) 0.9 K/uL (1.0-5.5); LYMPHOCYTES % (AUTO) 18.3 % (20.5-51.5); MEAN CORPUSCULAR HEMOGLOBIN 30 pg (27-31); MEAN CORPUSCULAR HGB CONC 33 % (32-36); MEAN CORPUSCULAR VOLUME 91 fL (79.0-98.0); MONOCYTES # (AUTO) 0.2 K/uL (0.0-1.0); MONOCYTES % (AUTO) 3.6 % (1.7-9.3); NEUTROPHILS # (AUTO) 3.9 K/uL (1.8-7.7); NEUTROPHILS % (AUTO) 77.1 % (40.0-70.0); RED BLOOD CELL COUNT(AUTO) 3.15 MIL/uL (4.2-6.2); WHITE BLOOD COUNT (AUTO) 5.1 K/uL (4.8-10.8)
[2022-11-15 07:36] LABS: PLATELET COUNT (AUTO) 47 K/uL (130-430)
[2022-11-15 07:46] VITALS: BP_SYST 124
[2022-11-15] MEDS: ASCORBIC ACID 500 MG TABLET PO SCH (08:45)
[2022-11-15] MEDS: MEGESTROL ACETATE 400 MG/10 ML UDC PO SCH (08:45)
[2022-11-15] MEDS: AMPICILLIN SODIUM/SULBACTAM NA 1.5 GM in NS 50 ML IV SCH (08:45)
[2022-11-15] MEDS: MULTIVITAMINS TAB 1 TABLET PO SCH (08:45)
[2022-11-15] MEDS: ALLOPURINOL 100 MG TABLET (ZYLOPRIM) PO SCH (08:45)
[2022-11-15] MEDS: FAMOTIDINE 20 MG TABLET PO SCH (08:45)
[2022-11-15] MEDS: APIXABAN 2.5 MG TABLET PO SCH (09:00)
--- NOTE | 2022-11-15 09:34 | NUR ---
cain CAMERON WAS HERE AND SEEN P[T, MD AWARE OF THE BLEEDING FROM SANTILLAN AND MD ORDER TO STOP ELIQUIS.
[2022-11-15 10:44] VITALS: BP_SYST 126
--- NOTE | 2022-11-15 10:50 | NUR ---
INFORMED PT'S DAUGHTER ADOLFO OF DC TODAY TO [facility] AT 1200 , THE DAUGHTER SAID SHE TOOK PT'S BACK WITH HER LAST NIGHT.
[2022-11-15 11:15] VITALS: BP_SYST 130
--- NOTE | 2022-11-15 11:31 | NUR ---
SBAR REPORT GIVEN TO TAI JUSTICE AT [facility].
--- NOTE | 2022-11-15 12:59 | NUR ---
PT PICKED UP BY AMBULANCE STAFF FOR TRANSFER TO [facility]. PT LEFT WITH SANTILLAN AND PICC LINE.
--- NOTE | 2022-11-15 15:31 | NUR ---
PHYSICAL THERAPY CO-SIGN The Physical Therapy Progress Notes documented by [employer] Forward[employer] have been reviewed. Reviewed/Co-Signed by: Dom Ratliff Documentation Done by:GERHARD BAIRES Addendum: 11/15/22 at 1532 by Dom Ratliff PT Amended: Links added.
== END 2022-11-15 13:00 | DRG 871 ==
LOC: SED 18:05 → SIC 23:16 → STU 11-12 18:01
PROVIDERS: ADMIT Family Medicine; ATTEND Family Medicine
PROC: 30233N1 Transfusion of Nonautologous Red Blood Cells into Peripheral Vein, Percutaneous Approach (ICD-10-PCS; principal; 2022-11-09)
PROC: 05HY33Z Insertion of Infusion Device into Upper Vein, Percutaneous Approach (ICD-10-PCS; 2022-11-09)
DX: A40.1 Sepsis due to streptococcus, group B (principal); E43 Unspecified severe protein-calorie malnutrition; R65.21 Severe sepsis with septic shock; J18.9 Pneumonia, unspecified organism; E87.1 Hypo-osmolality and hyponatremia; N17.9 Acute kidney failure, unspecified; N39.0 Urinary tract infection, site not specified; I48.20 Chronic atrial fibrillation, unspecified; N20.2 Calculus of kidney with calculus of ureter; I13.0 Hypertensive heart and chronic kidney disease with heart failure and stage 1 through stage 4 chronic kidney disease, or unspecified chronic kidney disease; D63.1 Anemia in chronic kidney disease; E86.0 Dehydration; F03.90 Unspecified dementia, unspecified severity, without behavioral disturbance, psychotic disturbance, mood disturbance, and anxiety; E78.5 Hyperlipidemia, unspecified; I71.40 Abdominal aortic aneurysm, without rupture, unspecified; I73.9 Peripheral vascular disease, unspecified; N26.1 Atrophy of kidney (terminal); Z20.822 Contact with and (suspected) exposure to COVID-19; Z96.643 Presence of artificial hip joint, bilateral; Z96.651 Presence of right artificial knee joint; R31.9 Hematuria, unspecified; I50.9 Heart failure, unspecified; N18.9 Chronic kidney disease, unspecified; Z88.8 Allergy status to other drugs, medicaments and biological substances; Z79.899 Other long term (current) drug therapy; Z74.01 Bed confinement status; Z79.01 Long term (current) use of anticoagulants; Z85.72 Personal history of non-Hodgkin lymphomas; Z86.16 Personal history of COVID-19; Z86.73 Personal history of transient ischemic attack (TIA), and cerebral infarction without residual deficits; Z86.79 Personal history of other diseases of the circulatory system; Z87.442 Personal history of urinary calculi; Z87.891 Personal history of nicotine dependence; Z90.5 Acquired absence of kidney; Z92.21 Personal history of antineoplastic chemotherapy; Z68.25 Body mass index [BMI] 25.0-25.9, adult
CPT/HCPCS: 36415; 71045; 76376; 80053; 80061; 81000; 82272; 82607; 82728; 82746; 83540; 83550; 83605; 83735; 83880; 84443; 84484; 85007; 85025; 85027; 85044; 85610-TC; 85651-TC; 85730-TC; 86886; 86900; 86901; 86920; 87040; 87081; 87086; 87101; 87186-TC; 93005; 94760; 96365; 97110-GP; 97530-GP; 99291; G0378; J0295; J0692; J0696; J2760; J7050; J7060; P9021